=== PATIENT | male | born 1940 | race American Indian/Alaskan Native ===

== ENCOUNTER 2017-10-27 11:34 | Inpatient (IN) | payer MEDICARE ==
[2017-10-27 12:40] LABS: Basophils % (Auto) 0.7 % (0.0-1.8); Eosinophils % (Auto) 0.1 % (0.0-4.3); Hematocrit 42.2 % (35.5-45.6); Hemoglobin 14.2 gm/dl (11.8-15.2); Mean Corpuscular HGB Conc 34 % (32-34); Mean Corpuscular Hemoglobin 34 pg (28-32); Mean Corpuscular Volume 100 fl (84-94); Platelet Count 150 K/mm3 (140-440); Red Blood Count 4.23 M/mm3 (3.65-5.03); White Blood Count 8.9 K/mm3 (4.5-11.0)
[2017-10-27 12:48] LABS: Magnesium 2.1 mg/dL (1.7-2.3)
[2017-10-27 12:51] LABS: INR 1.3 (0.87-1.13)
[2017-10-27 12:55] LABS: Albumin 3.1 g/dL (3.9-5); Albumin/Globulin Ratio 0.8 %; Bilirubin,Direct 0.4 mg/dL (0-0.2); Bilirubin,Indirect 1.3 mg/dL; Bilirubin,Total 1.7 mg/dL (0.1-1.2); Calcium 9.3 mg/dL (8.4-10.2); Chloride 103.8 mmol/L (98-107); Potassium 5.1 mmol/L (3.6-5.0)
--- NOTE | 2017-10-27 13:23 | XRay Report ---
ROUTINE CHEST, TWO VIEWS: HISTORY: chest pain. Moderate to severe cardiomegaly, mild vascular congestion and small bilateral pleural effusions are identified. Focal atelectasis or scarring in the right perihilar region is suspected. No convincing pneumonia. No pneumothorax. IMPRESSION: CHF.
--- NOTE | 2017-10-27 21:35 | Emergency Department Report ---
ED Shortness of Breath HPI - General Chief Complaint: Dyspnea/Respdistress Stated Complaint: CP/SOB Time Seen by Provider: 10/27/17 21:21 Source: patient Mode of arrival: Wheelchair Limitations: Physical Limitation - History of Present Illness Initial Comments: Reta is a 77-year-old male presents to the emergency room with chest pain or shortness of breath 2 months. Patient also states also had bilateral lower extremity edema for one week. Patient denies fever or chills or any other pain. Patient denies past medical history. Patient states he is not on any medications. patient denies calf pain. MD Complaint: shortness of breath, chest pain -: Gradual (over 2 months) Pain Scale: 5 Quality: dull, aching Consistency: constant Improves With: rest Worsens With: lying flat, exertion Associated Symptoms: chest pain, orhopnia Treatments Prior to Arrival: none - Related Data Home Oxygen Therapy: No Allergies Allergy/AdvReac Type Severity Reaction Status Date / Time No Known Allergies Allergy Verified 10/27/17 22:34 ED Review of Systems ROS: Stated complaint: CP/SOB Other details as noted in HPI Comment: All other systems reviewed and negative Constitutional: weakness Respiratory: orthopnea, shortness of breath, SOB with exertion, SOB at rest Cardiovascular: chest pain, dyspnea on exertion Endocrine: no symptoms reported Gastrointestinal: as per HPI Skin: other (bilateral lower extremity edema) ED Past Medical Hx - Past Medical History Previous Medical History?: Yes Hx Arthritis: Yes - Surgical History Past Surgical History?: No - Family History Family history: hypertension - Social History Smoking Status: Former Smoker Substance Use Type: Alcohol ED Physical Exam - General Limitations: Physical Limitation General appearance: alert, in no apparent distress - Head Head exam: Present: atraumatic, normocephalic - Eye Eye exam: Present: normal appearance - ENT ENT exam: Present: mucous membranes moist - Neck Neck exam: Present: normal inspection - Respiratory Respiratory exam: Present: normal lung sounds bilaterally. Absent: respiratory distress - Cardiovascular Cardiovascular Exam: Present: regular rate, normal rhythm. Absent: systolic murmur, diastolic murmur, rubs, gallop - GI/Abdominal GI/Abdominal exam: Present: soft, normal bowel sounds - Rectal Rectal exam: Present: deferred - Extremities Exam Extremities exam: Present: other (bilateral lower extremity swelling noted above the knee. No calf tenderness noticed) - Back Exam Back exam: Present: normal inspection - Neurological Exam Neurological exam: Present: alert, oriented X3 - Psychiatric Psychiatric exam: Present: normal affect, normal mood - Skin Skin exam: Present: warm, dry, intact, normal color. Absent: rash ED Course Vital Signs 10/27/17 12:01 Temperature 98.3 F Pulse Rate 114 H Respiratory 24 Rate Blood Pressure 117/87 O2 Sat by Pulse 95 Oximetry ED Medical Decision Making - Lab Data Result diagrams: 10/27/17 12:21 10/27/17 12:21 - EKG Data -: EKG Interpreted by Me EKG shows normal: sinus rhythm Rate: tachycardia - EKG Data When compared to previous EKG there are: previous EKG unavailable Interpretation: no acute changes, other (left bundle branch block noted) - Radiology Data Radiology results: report reviewed Findings consistent with CHF - Medical Decision Making Hospitalist consulted for admission. Discussed case with hospitalist. Hospitalist to admit. New-onset CHF. Cardiology, Dr. Galvez consulted. Discussed case with Dr. Galvez. Dr. Galvez is admit patient for CHF exacerbation. lasix to be given. - Differential Diagnosis cp. sob. new chf Critical care attestation.: If time is entered above; I have spent that time in minutes in the direct care of this critically ill patient, excluding procedure time. ED Disposition Clinical Impression: Chest pain, Shortness of breath, CHF exacerbation, Bilateral lower extremity edema, Hyperkalemia Disposition: OP ADMIT IP TO THIS HOSP Is pt being admited?: Yes Does the pt Need Aspirin: Yes Condition: Critical Time of Disposition: 22:10
[2017-10-27] MEDS ORDERED: LASIX IV ONE (21:38)
[2017-10-27] MEDS ORDERED: ASPIRIN PO ONE (22:10)
[2017-10-27] MEDS ORDERED: MORPHINE IV PRN (22:29)
[2017-10-27] MEDS ORDERED: NITROSTAT SL PRN (22:29)
[2017-10-28 01:12] LABS: Bilirubin,Urine NEG (Negative); Blood,Urine NEG (Negative); Ketones,Urine NEG (Negative); Leukocyte Esterase,Urine NEG (Negative); Mucus,Urine FEW /HPF; Nitrite,Urine NEG (Negative); Protein,Urine <15 mg/dL mg/dL (Negative); Urobilinogen,Urine < 2.0 mg/dL (<2.0)
[2017-10-28 01:34] LABS: RBC,Urine < 1.0 /HPF (0.0-6.0)
--- NOTE | 2017-10-28 04:25 | History and Physical Report ---
CHIEF COMPLAINT: Shortness of breath. OTHER COMPLAINT: Increased swelling of the lower extremities. HISTORY OF PRESENTING ILLNESS: The patient is a 77-year-old male who says he has been having shortness of breath, going on and off for about two months and has noted swelling in both lower extremities, going on for about one week and becoming progressively big in size. The patient also complained of some chest discomfort and cough. There is no history of fever or chills and no history of nausea or vomiting. The patient also denied history of pain in the lower extremities. PAST MEDICAL HISTORY: Pertinent for high blood pressure. Also, the patient has past history of nephritis. PAST SURGICAL HISTORY: Unremarkable. FAMILY HISTORY: Pertinent for hypertension. SOCIAL HISTORY: The patient drinks alcohol. He used to smoke before, but does not smoke any more and does not use illicit drug. MEDICATIONS: The patient is not on any home medications. ALLERGIES: There are no known drug allergies. REVIEW OF SYSTEMS: CONSTITUTIONAL: There is no fever, no chills, no diaphoresis. HEENT: There is no headache or sore throat. CARDIOVASCULAR SYSTEM: Chest discomfort present. No orthopnea. RESPIRATORY SYSTEM: Shortness of breath present. Cough present. GASTROINTESTINAL SYSTEM: There is no nausea, no vomiting; no abdominal pain, diarrhea or constipation. NEUROLOGICAL SYSTEM: There is no numbness, no dizziness, no altered mental status. MUSCULOSKELETAL SYSTEM: There is swelling of both lower extremities and no joint pain. DERMATOLOGICAL SYSTEM: There is no skin rash or itching. GENITOURINARY SYSTEM: There are no dysuria, hematuria or flank pain. Rest of system review is normal. PHYSICAL EXAMINATION: GENERAL: At the time of exam, the patient was found to be alert, oriented x 3 and in mild distress due to shortness of breath and swelling in the lower extremities. VITAL SIGNS: Shows normal temperature with pulse of 100, respirations around 18-25, blood pressure 112/65 with O2 sat of about 86% before oxygen administration and up to 100% with oxygen by nasal cannula. HEENT: Showed pupils to be equal, round, and reactive to light and accommodation. Extraocular muscles are intact. NECK: Supple with JVD and no carotid bruit. CARDIOVASCULAR SYSTEM: Showed normal first and second heart sounds with no gallops or murmurs. RESPIRATORY SYSTEM: Showed reduced air entry on both sides of the lung with bibasilar rales. GASTROINTESTINAL SYSTEM: Show abdomen to be full, soft, nontender with no organomegaly or rigidity. NEUROLOGIC: Shows no focal deficit. MUSCULOSKELETAL SYSTEM: Shows swelling of the lower extremities from the foot up to the thigh level, which is pitting in nature. DERMATOLOGICAL SYSTEM: Show no skin rash. GENITOURINARY SYSTEM: Show no costovertebral angle tenderness. PERTINENT LABORATORY AND IMAGING STUDIES: The patient has CBC done that shows normal white count, normal hemoglobin and normal hematocrit with elevated MCV of 100. CBC differential showing elevated segmented neutrophil of 80.4. Coagulation studies show slight increase in PT of 16.9 and slight increase in INR of 1.30. Chemistry shows a slightly elevated potassium level of 5.1 with high BUN of 26 and slightly low GFR of 54. The patient's total bilirubin level was high with a value of 1.7 and direct bilirubin is slightly elevated with a value of 0.4. The patient's total creatinine kinase is high with a value of 188 with elevated CK-MB of 8.0 and an elevated percentage index of 4.0. The patient's troponin level is high with a value of 0.030 and the second value with a value of 0.031 and the last one of 0.035. The patient's brain natriuretic peptide level is high with a value of 31,233 and albumin level shows slight decreased value of 3.1. Urinalysis came back unremarkable. IMAGING STUDIES: The patient had a chest x-ray done that shows CHF. DIAGNOSES: 1. Congestive heart failure. 2. Non-ST segment elevation myocardial infarction. PLAN: The patient will be admitted to medical floor on telemetry and will have echocardiogram done in the morning. The patient will have Cardiology consult with Dr. Salas in view of the elevated troponin levels and will be on aspirin 81 mg by mouth daily and will be on carvedilol 6.25 mg by mouth twice daily. The patient will be on Lasix 40 mg IV daily and will be on heparin 5000 units subcutaneously every 12 hours for DVT prophylaxis. The patient will be on lisinopril 5 mg by mouth daily and morphine 2 mg IV every 5 minutes as needed for pain and nitro paste half inch to anterior chest wall q.i.d. The patient will be on oxygen by nasal cannula 2 liter per minute, and in view of the persistent elevated troponin level, the patient will be started on IV heparin rather than subcutaneous heparin and will be n.p.o. for possible intervention by the Cardiology. JOB# [id number] OCN/NTS
[2017-10-28] MEDS: NITRO-BID 2% TP SCH ×6 (05:18→17:24)
[2017-10-28] MEDS: HEPARIN/ 0.45% NACL-25,000 UNIT/500 ML 25,000 UNIT/500 ML BAG IV SCH ×2 (05:30→14:05)
[2017-10-28 06:06] LABS: Hematocrit 42.5 % (35.5-45.6); Hemoglobin 13.6 gm/dl (11.8-15.2)
[2017-10-28 06:16] LABS: INR 1.27 (0.87-1.13)
[2017-10-28 06:17] LABS: Partial Thromboplastin Time 33.8 Sec. (24.2-36.6)
[2017-10-28 06:27] LABS: Creatine Kinase MB 7.9 ng/mL (0.0-4.0)
[2017-10-28] MEDS: LASIX IV SCH (09:58)
[2017-10-28] MEDS: BABY ASPIRIN PO SCH (09:58)
[2017-10-28] MEDS: COREG PO SCH ×2 (09:59→21:50)
[2017-10-28] MEDS ORDERED: HEPARIN SUB-Q SCH (10:00)
[2017-10-28] MEDS ORDERED: ZESTRIL PO SCH (10:00)
--- NOTE | 2017-10-28 10:30 | Consultation ---
History of Present Illness Consult date: 10/28/17 Medications and Allergies Allergies Allergy/AdvReac Type Severity Reaction Status Date / Time No Known Allergies Allergy Verified 10/27/17 22:34 Home Medications Medication Instructions Recorded Confirmed Last Taken Type No Known Home Medications [No 10/28/17 10/28/17 Unknown History Reported Home Medications] Active Meds: Active Medications Aspirin (Baby Aspirin) 81 mg PO QDAY COUNT INCLUDES THE [facility] Last Admin: 10/28/17 09:58 Dose: 81 mg Carvedilol (Coreg) 6.25 mg PO BID COUNT INCLUDES THE [facility] Last Admin: 10/28/17 09:59 Dose: 6.25 mg Furosemide (Lasix) 40 mg IV QDAY COUNT INCLUDES THE [facility] Last Admin: 10/28/17 09:58 Dose: 40 mg Heparin Sodium/Sodium Chloride (Heparin/ 0.45% Nacl-25,000 Unit/500 Ml) 25,000 unit in 500 mls @ 20 mls/hr IV TITRATE COUNT INCLUDES THE [facility]; 1,000 UNITS/HR PRN Reason: Protocol Last Admin: 10/28/17 05:30 Dose: 1,000 units/hr, 20 mls/hr Influenza Virus Vaccine Quadrival (Fluarix Quad [id number](36 Mos+) 0.5 ml IM .ONCE ONE Stop: 10/28/17 12:01 Lisinopril (Zestril) 5 mg PO QDAY COUNT INCLUDES THE [facility] Last Admin: 10/28/17 09:59 Dose: 5 mg Morphine Sulfate (Morphine) 2 mg IV Q5MIN PRN PRN Reason: Chest Pain Last Admin: 10/27/17 23:04 Dose: 2 mg Nitroglycerin (Nitrostat) 0.4 mg SL .Q5MIN PRN PRN Reason: Chest Pain Nitroglycerin (Nitro-Bid 2%) 0.5 inch TP QIDNTG COUNT INCLUDES THE [facility] PRN Reason: Protocol Last Admin: 10/28/17 10:08 Dose: Not Given Physical Examination Vital Signs Temp Pulse Resp BP Pulse Ox 98.3 F 114 H 24 117/87 95 10/27/17 12:01 10/27/17 12:01 10/27/17 12:01 10/27/17 12:01 10/27/17 12:01 Results 10/28/17 04:54 10/27/17 12:21 Cardiac Enzymes 10/27/17 10/28/17 10/28/17 Range/Units 12:21 01:11 04:54 AST 27 (5-40) units/L CK-MB (CK-2) 8.0 H 7.9 H (0.0-4.0) ng/mL Coagulation 10/27/17 10/28/17 Range/Units 12:21 04:54 PT 16.9 H 16.6 H (12.2-14.9) Sec. INR 1.30 H 1.27 H (0.87-1.13) APTT 32.0 33.8 (24.2-36.6) Sec. Lipids 10/27/17 Range/Units 12:21 Triglycerides 91 (2-149) mg/dL Cholesterol 154 (50-199) mg/dL HDL Cholesterol 49 (40-59) mg/dL Cholesterol/HDL Ratio 3.14 % CBC 10/27/17 10/28/17 Range/Units 12:21 04:54 WBC 8.9 (4.5-11.0) K/mm3 RBC 4.23 (3.65-5.03) M/mm3 Hgb 14.2 13.6 (11.8-15.2) gm/dl Hct 42.2 42.5 (35.5-45.6) % Plt Count 150 139 L (140-440) K/mm3 Lymph # 0.9 L (1.2-5.4) K/mm3 [place] # 0.7 (0.0-0.8) K/mm3 Eos # 0.0 (0.0-0.4) K/mm3 Baso # 0.1 (0.0-0.1) K/mm3 Comprehensive Metabolic Panel 10/27/17 Range/Units 12:21 Sodium 142 (137-145) mmol/L Potassium 5.1 H (3.6-5.0) mmol/L Chloride 103.8 (98-107) mmol/L Carbon Dioxide 21 L (22-30) mmol/L BUN 26 H (9-20) mg/dL Creatinine 1.3 (0.8-1.5) mg/dL Glucose 114 H (75-100) mg/dL Calcium 9.3 (8.4-10.2) mg/dL Direct Bilirubin 0.4 H (0-0.2) mg/dL Indirect Bilirubin 1.3 mg/dL AST 27 (5-40) units/L ALT 24 (7-56) units/L Alkaline Phosphatase 64 (35-129) units/L Total Protein 7.0 (6.3-8.2) g/dL Albumin 3.1 L (3.9-5) g/dL Assessment and Plan Detailed Cardiology consult done.
[2017-10-28] MEDS ORDERED: Fluarix Quad 2017-2018(36 MOS+ IM ONE (12:00)
--- NOTE | 2017-10-28 20:23 | Progress Note ---
Assessment and Plan - Chest pain Monitor serial Eric. continue with oxygen, NTG, ASA, morphine. Cardiology consulted - Systolic heart failure ECHO done. EF 5-10% wiht severe systolic dysfunction. Strict Is and Os, Daily weight, Limited fluid intake to 1L/day ACEI, BB, Statin, - MICHAEL Elevated BUN 26. Likely secondry to diuresis. Trend BUN and CR - Hyperkalemia anticipate decreased with diuresis. Trend - Abnormal Eric on oxygen NTG, ASA, BB, Cardilogy following - DVT PPx with Heparinfg and GI with pepcid Subjective Date of service: 10/28/17 Principal diagnosis: chest pain Interval history: Chest pain getting better. Still has shortness of breath. Swelling of both feet improving Objective - Constitutional Vitals: Vital Signs - 12hr 10/28/17 10/28/17 12:12 13:19 Pulse Rate 81 O2 Sat by Pulse 97 Oximetry General appearance: Present: no acute distress - EENT Eyes: PERRL, EOM intact ENT: hearing intact, clear oral mucosa - Neck Neck: supple, normal ROM - Respiratory Respiratory effort: normal Respiratory: bilateral: diminished - Breasts Breasts: normal - Cardiovascular Rhythm: regular Heart Sounds: Present: S1 & S2. Absent: gallop, rub Extremities: pulses intact, normal color, Full ROM Extremity abnormal: edema (3+ shamika LE) - Gastrointestinal General gastrointestinal: Present: soft, non-tender, non-distended, normal bowel sounds - Genitourinary Male genitourinary: normal - Integumentary Integumentary: clear, warm, dry - Musculoskeletal Musculoskeletal: 1, strength equal bilaterally - Neurologic Neurologic: moves all extremities - Psychiatric Psychiatric: memory intact, appropriate mood/affect, intact judgment & insight - Labs CBC & Chem 7: 10/28/17 04:54 10/27/17 12:21 Labs: Abnormal lab results 10/28/17 10/28/17 10/28/17 Range/Units 01:11 04:54 04:54 Plt Count 139 L (140-440) K/mm3 PT (12.2-14.9) Sec. INR (0.87-1.13) Heparin Anti-Xa Level (0.3-0.7) U.I./ml Total Creatine Kinase 188 H 174 H (55-170) units/L CK-MB (CK-2) 8.0 H 7.9 H (0.0-4.0) ng/mL CK-MB (CK-2) Rel Index 4.2 H 4.5 H (0-4) Troponin T 0.035 H (0.00-0.029) ng/mL 10/28/17 10/28/17 Range/Units 04:54 12:09 Plt Count (140-440) K/mm3 PT 16.6 H (12.2-14.9) Sec. INR 1.27 H (0.87-1.13) Heparin Anti-Xa Level 0.26 L (0.3-0.7) U.I./ml Total Creatine Kinase (55-170) units/L CK-MB (CK-2) (0.0-4.0) ng/mL CK-MB (CK-2) Rel Index (0-4) Troponin T (0.00-0.029) ng/mL
--- NOTE | 2017-10-29 01:08 | Consultation ---
REFERRING PHYSICIAN: Aries Cook MD, hospitalist. HISTORY OF PRESENT ILLNESS: A 77-year-old pleasant -[place] gentleman with history of longstanding hypertension, degenerative joint disease, was admitted with progressive shortness of breath for the past 1 month duration and also [id number] substernal pressure-like chest pain on and off, at times addressed, and also on exertion, radiating to both sides of the neck. It is not associated with any nausea, vomiting, sweating, palpitations, presyncope or syncope. He also gives a history of swelling of both the legs and feet for the past 1 month. He has not seen a physician for a long time. No history of diabetes mellitus or hyperlipidemia. His serum creatinine is 1.3. His troponins are minimally increased with the CPK of 188 and 174, with MB of 8 and indices of 4.2 and 4.5. The mild increase in troponin is most likely secondary to congestive heart failure. He has improved clinically with treatment. Monitor also revealed an episode of nonsustained wide QRS tachycardia, most likely ventricular tachycardia (rate of 150 beats per minute). His EKG revealed complete left bundle branch block. He is being treated with intravenous diuretics with improvement. PAST MEDICAL HISTORY: History of multiple medical problems as described above. No history of CAD or myocardial infarction in the past, and history of chronic shortness of breath. SOCIAL HISTORY: He was a smoker, more than 10 years ago. He smoked for about 2 years (a pack a day and quit smoking then.) No history of alcoholic or drug abuse. FAMILY HISTORY: Positive for hypertension. Negative for premature coronary artery disease. ALLERGIES: None known. MEDICATIONS: He received intravenous morphine, nitro paste in the emergency room, and he also received aspirin. He is on aspirin 325 mg. He is on baby aspirin 81 mg p.o. daily, Coreg 6.25 mg p.o. b.i.d., furosemide 40 mg IV daily, lisinopril 5 mg p.o. daily, nitro paste half an inch to the chest wall. REVIEW OF SYSTEMS: CARDIOVASCULAR SYSTEM: As described in the history. BONE AND JOINTS: As described in the history. GI: Total bilirubin during this admission has increased to 1.7. Review of rest of the 10 systems is negative. PHYSICAL EXAMINATION: GENERAL: A 77-year-old pleasant -[place] gentleman. VITAL SIGNS: He is afebrile, pulse is 90 per minute regular, respirations 22 per minute, blood pressure 106/74 mmHg. NEUROLOGIC: He is alert and oriented x 3. HEENT: Negative. NECK: Supple. JVD 1-2+. No carotid bruit. HEART: PMI shifted down and out and is heaving in nature, no palpable thrills. Auscultation of the heart reveals a grade 2-3/6 ejection systolic murmur over the precardium, not contacted to the carotids more prominently over the apex. No rub. S4 is present, no S3. No rub. EXTREMITIES: Peripheral pulses felt. Bilateral 1-2+ pitting edema of both legs and feet. LUNGS: Examination also revealed mild wheezing. No bronchial breathing. ABDOMEN: Soft, benign. No organomegaly. SKIN: Negative. BONE AND JOINTS: Negative. LABORATORY DATA: Troponin 0.03, 0.031, 0.035, 0.028; HDL is 49, LDL is 87, triglycerides 91, potassium 5.1, BUN and creatinine 26 and 1.3, sodium 142. Chest x-ray reveals congestive heart failure. EKG is sinus tachycardia with rate of 119 per minute. Complete left bundle branch block with secondary ST-T changes. His proBNP is markedly increased to 31,233. IMPRESSION: 1. Recurrent chest pains with mild increase in troponins (there is mild increase in troponins could be secondary to congestive heart failure and also chronic kidney disease, acute myocardial infarction is unlikely). 2. Acute on chronic congestive heart failure (whether it is systolic or diastolic or a combination of both will be known after reviewing the echocardiogram). 3. History of hypertension. 4. History of degenerative joint disease. 5. Mild hyperkalemia. 6. Possible chronic kidney disease, creatinine 1.3. 7. Complete left bundle branch block and EKG. RECOMMENDATIONS: 1. We will hold lisinopril in view of mild hyperkalemia. 2. Salt and fluid restriction. 3. To continue other medications. 4. We will follow up echocardiogram (pending at this time). 5. We will schedule him for a [place] stress nuclear scan in the a.m., and need to be followed up. Prognosis is guarded. We will follow. JOB# [id number] [facility]
[2017-10-29 04:47] LABS: BUN/Creatinine Ratio 20; Blood Urea Nitrogen 30 mg/dL (9-20); Glucose 84 mg/dL (75-100); Potassium 4.1 mmol/L (3.6-5.0); Sodium 144 mmol/L (137-145)
[2017-10-29 05:19] LABS: Anion Gap 59 mmol/L; Carbon Dioxide 29 mmol/L (22-30)
[2017-10-29] MEDS: NITRO-BID 2% TP SCH ×3 (05:24→18:53)
[2017-10-29] MEDS: HEPARIN/ 0.45% NACL-25,000 UNIT/500 ML 25,000 UNIT/500 ML BAG IV SCH (06:03)
[2017-10-29] MEDS ORDERED: LEXISCAN IV ONE (10:00)
--- NOTE | 2017-10-29 10:06 | Progress Note ---
Assessment and Plan Assessment and plan: Patient is a 77 year old male with long standing hx of HTN, DJD, admitted with severe shortness of breath, ongoing for 2 months and worse in the last ffew days with associated lower ext swelling. Occasional Alcohol per hx and current tobacco use. Acute on chronic combined systolic diastolic heart failure * I/O, DAILY Weight, cardiology input noted, coreg, hold Lisinopril, Discussed with cardiology will need Life vest due to EF of 10% Atypical chest pain * Stress test negative. Likely secondary to CAD, will monitor. Now resolved, STATIN THERAPY MICHAEL * Elevated BUN 26. Likely secondry to Vasomotor nephropathy from diuresis. Trend BUN and CR. Hold ACEI Hyperkalemia * Resolved, anticipate decreased with diuresis. Trend Non Ischemic cardiomyopathy * cardiology following DJD * stable, ambulates with a cane complete LBBB * Cardiology following Abnormal Keiry * Elevate Troponin like secondary to cardiomyopathy DVT PPx with Heparin and GI with pepcid Plan discussed with patient in detail . History Interval history: Patient seen and examined in no acute distress. He still with some shortness of breath but reports improvement in his lower ext swelling. He denies any chest pain, nausea, vomiting or diarrhea. Hospitalist Physical - Constitutional Vitals: Temp Pulse Resp BP Pulse Ox 98.2 F 50 L 18 93/45 7 L 10/29/17 07:49 10/29/17 07:49 10/29/17 07:49 10/29/17 07:49 10/29/17 08:00 General appearance: Present: no acute distress - EENT Eyes: Present: PERRL, EOM intact ENT: hearing intact, clear oral mucosa - Neck Neck: Present: supple, normal ROM - Respiratory Respiratory effort: normal Respiratory: bilateral: rhonchi - Cardiovascular Rhythm: regular Heart Sounds: Present: S1 & S2 - Extremities Extremities: no ischemia, pulses intact, pulses symmetrical Extremity abnormal: edema (2+ pitting edema) Peripheral Pulses: within normal limits - Abdominal General gastrointestinal: soft, non-tender, non-distended - Integumentary Integumentary: Present: clear, warm - Psychiatric Psychiatric: appropriate mood/affect, intact judgment & insight - Neurologic Neurologic: CNII-XII intact, moves all extremities - Allied Health Allied health notes reviewed: nursing Results - Labs CBC & Chem 7: 10/28/17 04:54 10/29/17 02:11 Labs: Laboratory Last Values WBC 8.9 K/mm3 (4.5-11.0) 10/27/17 12:21 RBC 4.23 M/mm3 (3.65-5.03) 10/27/17 12:21 Hgb 13.6 gm/dl (11.8-15.2) 10/28/17 04:54 Hct 42.5 % (35.5-45.6) 10/28/17 04:54 MCV 100 fl (84-94) H 10/27/17 12:21 MCH 34 pg (28-32) H 10/27/17 12:21 MCHC 34 % (32-34) 10/27/17 12:21 RDW 18.0 % (13.2-15.2) H 10/27/17 12:21 Plt Count 139 K/mm3 (140-440) L 10/28/17 04:54 Lymph % (Auto) 10.4 % (13.4-35.0) L 10/27/17 12:21 [place] % (Auto) 8.4 % (0.0-7.3) H 10/27/17 12:21 Eos % (Auto) 0.1 % (0.0-4.3) 10/27/17 12:21 Baso % (Auto) 0.7 % (0.0-1.8) 10/27/17 12:21 Lymph # 0.9 K/mm3 (1.2-5.4) L 10/27/17 12:21 Pope # 0.7 K/mm3 (0.0-0.8) 10/27/17 12:21 Eos # 0.0 K/mm3 (0.0-0.4) 10/27/17 12:21 Baso # 0.1 K/mm3 (0.0-0.1) 10/27/17 12:21 Seg Neutrophils % 80.4 % (40.0-70.0) H 10/27/17 12:21 Seg Neutrophils # 7.1 K/mm3 (1.8-7.7) 10/27/17 12:21 PT 16.6 Sec. (12.2-14.9) H 10/28/17 04:54 INR 1.27 (0.87-1.13) H 10/28/17 04:54 APTT 33.8 Sec. (24.2-36.6) 10/28/17 04:54 Heparin Anti-Xa Level 0.55 U.I./ml (0.3-0.7) 10/29/17 01:50 Sodium 144 mmol/L (137-145) 10/29/17 02:11 Potassium 4.1 mmol/L (3.6-5.0) 10/29/17 02:11 Chloride 60.0 mmol/L (98-107) L 10/29/17 02:11 Carbon Dioxide 29 mmol/L (22-30) D 10/29/17 02:11 Anion Gap 59 mmol/L 10/29/17 02:11 BUN 30 mg/dL (9-20) H 10/29/17 02:11 Creatinine 1.5 mg/dL (0.8-1.5) 10/29/17 02:11 Estimated GFR > 60 ml/min 10/29/17 02:11 BUN/Creatinine Ratio 20 % 10/29/17 02:11 Glucose 84 mg/dL (75-100) 10/29/17 02:11 POC Glucose 95 (70-105) 10/29/17 07:52 Calcium 8.0 mg/dL (8.4-10.2) L 10/29/17 02:11 Magnesium 2.10 mg/dL (1.7-2.3) 10/27/17 12:21 Total Bilirubin 1.70 mg/dL (0.1-1.2) H 10/27/17 12:21 Direct Bilirubin 0.4 mg/dL (0-0.2) H 10/27/17 12:21 Indirect Bilirubin 1.3 mg/dL 10/27/17 12:21 AST 27 units/L (5-40) 10/27/17 12:21 ALT 24 units/L (7-56) 10/27/17 12:21 Alkaline Phosphatase 64 units/L (35-129) 10/27/17 12:21 Total Creatine Kinase 174 units/L (55-170) H 10/28/17 04:54 CK-MB (CK-2) 7.9 ng/mL (0.0-4.0) H 10/28/17 04:54 CK-MB (CK-2) Rel Index 4.5 (0-4) H 10/28/17 04:54 Troponin T 0.028 ng/mL (0.00-0.029) 10/28/17 04:54 NT-Pro-B Natriuret Pep 28633 pg/mL (0-900) H 10/27/17 12:21 Total Protein 7.0 g/dL (6.3-8.2) 10/27/17 12:21 Albumin 3.1 g/dL (3.9-5) L 10/27/17 12:21 Albumin/Globulin Ratio 0.8 % 10/27/17 12:21 Triglycerides 91 mg/dL (2-149) 10/27/17 12:21 Cholesterol 154 mg/dL (50-199) 10/27/17 12:21 LDL Cholesterol Direct 87 mg/dL (50-130) 10/27/17 12:21 HDL Cholesterol 49 mg/dL (40-59) 10/27/17 12:21 Cholesterol/HDL Ratio 3.14 % 10/27/17 12:21 Urine Color Straw (Yellow) 10/28/17 00:49 Urine Turbidity Clear (Clear) 10/28/17 00:49 Urine pH 5.0 (5.0-7.0) 10/28/17 00:49 Ur Specific [place] 1.005 (1.003-1.030) 10/28/17 00:49 Urine Protein <15 mg/dl mg/dL (Negative) 10/28/17 00:49 Urine Glucose (UA) Neg mg/dL (Negative) 10/28/17 00:49 Urine Ketones Neg mg/dL (Negative) 10/28/17 00:49 Urine Blood Neg (Negative) 10/28/17 00:49 Urine Nitrite Neg (Negative) 10/28/17 00:49 Urine Bilirubin Neg (Negative) 10/28/17 00:49 Urine Urobilinogen < 2.0 mg/dL (<2.0) 10/28/17 00:49 Ur Leukocyte Esterase Neg (Negative) 10/28/17 00:49 Urine WBC (Auto) 1.0 /HPF (0.0-6.0) 10/28/17 00:49 Urine RBC (Auto) < 1.0 /HPF (0.0-6.0) 10/28/17 00:49 U Epithel Cells (Auto) < 1.0 /HPF (0-13.0) 10/28/17 00:49 Urine Mucus Few /HPF 10/28/17 00:49 Blood Type A POSITIVE 10/27/17 12:21 Antibody Screen Negative 10/27/17 12:21 - Imaging and Cardiology Chest x-ray: image reviewed (Congestive heart failure)
[2017-10-29] MEDS: BABY ASPIRIN PO SCH (11:53)
[2017-10-29] MEDS ORDERED: PNEUMOVAX 23 IM ONE (12:00)
--- NOTE | 2017-10-29 14:00 | Progress Note ---
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 CKD CMP - presumably nonischemic as stress test today was negative for ischemia H/o HTN - currently with borderline hypotension DJD Mild hyperkalemia - improved Possible CKD - renal indices trending upwards Complete LBBB NSVT Plan: Echo reviewed - EF 5-10%, abnormal LV diastolic function, LA moderately dilated , RV mild to moderately dilated, RV systolic function moderately reduced, RA mild to moderately dilated, severe MR, mod TR, mild pulm HTN, RVSP 40mmHg. S/p lexiscan MPI stress test this AM which was negative for ischemia, EF 10%. D/ c heparin gtt and initiate SQ heparin for DVT prophylaxis. Cont Coreg. Recommend holding lisinopril in setting of increasing serum Cr and borderline hypotension. Repeat BMP in AM. Telemetry reviewed with multiple episodes of NSVT. Will order LifeVest given EF of 5-10%. Possible discharge in AM and pending LifeVest placement. The patient has been seen in conjunction with Dr. Khalil who agrees with the assessment and plan of care. Subjective Date of service: 10/29/17 Principal diagnosis: chest pain Interval history: for stress test today Objective Last Vital Signs Temp 98.2 F 10/29/17 07:49 Pulse 88 10/29/17 09:45 Resp 18 10/29/17 07:49 BP 89/66 10/29/17 09:45 Pulse Ox 7 L 10/29/17 08:00 - Physical Examination General: No Apparent Distress HEENT: Positive: PERRL, Normocephaly, Sinus Tenderness Neck: Positive: neck supple, trachea midline Cardiac: Positive: Reg Rate and Rhythm, S1/S2, Systolic Murmur Lungs: Positive: Wheezes Neuro: Positive: Grossly Intact Abdomen: Positive: Soft. Negative: Tender Skin: Positive: Clear. Negative: Rash, Wound Extremities: Present: +1 Edema (BLE) - Labs and Meds Comprehensive Metabolic Panel 10/29/17 Range/Units 02:11 Sodium 144 (137-145) mmol/L Potassium 4.1 (3.6-5.0) mmol/L Chloride 60.0 L (98-107) mmol/L Carbon Dioxide 29 D (22-30) mmol/L BUN 30 H (9-20) mg/dL Creatinine 1.5 (0.8-1.5) mg/dL Glucose 84 (75-100) mg/dL Calcium 8.0 L (8.4-10.2) mg/dL - Telemetry EKG Rhythm: Sinus Rhythm
[2017-10-29] MEDS: COREG PO SCH ×2 (17:18→21:49)
[2017-10-29] MEDS: ZESTRIL PO SCH (17:19)
[2017-10-29] MEDS: HEPARIN SUB-Q SCH (21:50)
[2017-10-29] MEDS: LASIX IV SCH (21:59)
[2017-10-30] MEDS: NITRO-BID 2% TP SCH ×4 (05:38→18:00)
[2017-10-30] MEDS: HEPARIN SUB-Q SCH ×3 (05:52→22:31)
[2017-10-30 06:18] LABS: Hematocrit 42.5 % (35.5-45.6); Hemoglobin 13.7 gm/dl (11.8-15.2); Mean Corpuscular HGB Conc 32 % (32-34); Mean Corpuscular Hemoglobin 32 pg (28-32); Mean Corpuscular Volume 100 fl (84-94); Platelet Count 127 K/mm3 (140-440); Red Blood Count 4.25 M/mm3 (3.65-5.03); Red Cell Distribution Width 17.5 % (13.2-15.2); White Blood Count 5.2 K/mm3 (4.5-11.0)
[2017-10-30 06:37] LABS: Anion Gap 13 mmol/L; BUN/Creatinine Ratio 22; Blood Urea Nitrogen 26 mg/dL (9-20); Calcium 8.6 mg/dL (8.4-10.2); Carbon Dioxide 29 mmol/L (22-30); Chloride 108.3 mmol/L (98-107); Glucose 86 mg/dL (75-100); Potassium 4.7 mmol/L (3.6-5.0); Sodium 146 mmol/L (137-145)
--- NOTE | 2017-10-30 07:14 | Treadmill Report ---
SINGLE ISOTOPE DUAL STUDY MYOCARDIAL PERFUSION SCAN REPORT REFERRING PHYSICIAN: Isaiah Harper MD. VIEWED BY: Gena Vaz MD. DESCRIPTION OF PROCEDURE: The patient received 10 mCi of technetium 99m Myoview intravenously under resting conditions. Resting myocardial perfusion scan was done. Subsequently, the patient underwent Lexiscan stress test as per the protocol. During Lexiscan stress, the patient received 28 mCi of technetium 99m Myoview intravenously. After 30-60 minutes, post stress images were done. Computerized reconstruction images were performed for analysis. The post-stress images revealed markedly dilated left ventricle. Large severe inferior wall perfusion defect was seen. A small mild septal perfusion defect was seen. A small mild anterior wall perfusion defect was also seen. Gated study revealed markedly dilated left ventricle with severe global left ventricular systolic dysfunction with LVEF around 10%. The resting images revealed minimal reversibility in the inferior wall. There was no reperfusion in the septal region or in the anterior wall region. CONCLUSIONS: 1. Markedly dilated left ventricle. 2. Severe global left ventricular systolic dysfunction with LVEF around 10%. 3. Large severe minimally reversible inferior wall perfusion defect. 4. Small fixed, mild septal perfusion defect. 5. Small mild fixed anterior wall perfusion defect. 6. The above findings are suggestive of dilated severe nonischemic cardiomyopathy. [facility]# [id number] [facility]
[2017-10-30] MEDS: LASIX IV SCH ×2 (09:57→18:17)
[2017-10-30] MEDS: BABY ASPIRIN PO SCH (09:57)
[2017-10-30] MEDS: ZESTRIL PO SCH (09:59)
[2017-10-30] MEDS: COREG PO SCH ×2 (10:00→23:51)
--- NOTE | 2017-10-30 11:32 | Progress Note ---
Assessment and Plan Assessment and plan: Patient is a 77 year old male with long standing hx of HTN, DJD, admitted with severe shortness of breath, ongoing for 2 months and worse in the last ffew days with associated lower ext swelling. Occasional Alcohol per hx and current tobacco use. Acute on chronic combined systolic diastolic heart failure * I/O, DAILY Weight, cardiology input noted, coreg, hold Lisinopril, Discussed with cardiology will need Life vest due to EF of 10% * Stress test with markedly dilated LV with severely decreased EF of 10%. Multiple fixed perfusion defects with minimal reversibility in the inferior wall - suggestive of dilated nonischemic cardiomyopathy. Atypical chest pain * significantly dilated LV with noted severely decreased EF. will need a life vest. Likely secondary to CAD, will monitor. Now resolved, STATIN THERAPY MICHAEL * Elevated BUN 26. Likely secondry to Vasomotor nephropathy from diuresis. Trend BUN and CR. Hold ACEI Hyperkalemia * Resolved, anticipate decreased with diuresis. Trend Non Ischemic cardiomyopathy * cardiology following DJD * stable, ambulates with a cane complete LBBB * Cardiology following Abnormal Keiry * Elevate Troponin like secondary to cardiomyopathy DVT PPx with Heparin and GI with pepcid Plan discussed with patient in detail . : History Interval history: Patient seen and examined in no acute distress. He still with some shortness of breath but reports improvement in his lower ext swelling. He denies any chest pain, nausea, vomiting or diarrhea. Hospitalist Physical - Physical exam Narrative exam: General appearance: Present: no acute distress - EENT Eyes: Present: PERRL, EOM intact ENT: hearing intact, clear oral mucosa - Neck Neck: Present: supple, normal ROM - Respiratory Respiratory effort: normal Respiratory: bilateral: rhonchi - Cardiovascular Rhythm: regular Heart Sounds: Present: S1 & S2 - Extremities Extremities: no ischemia, pulses intact, pulses symmetrical Extremity abnormal: edema (2+ pitting edema) Peripheral Pulses: within normal limits - Abdominal General gastrointestinal: soft, non-tender, non-distended - Integumentary Integumentary: Present: clear, warm - Psychiatric Psychiatric: appropriate mood/affect, intact judgment & insight - Neurologic Neurologic: CNII-XII intact, moves all extremities - Allied Health Allied health notes reviewed: nursing - Constitutional Vitals: Temp Pulse Resp BP Pulse Ox 97.8 F 80 18 102/60 100 10/30/17 03:58 10/30/17 10:00 10/30/17 03:58 10/30/17 10:00 10/30/17 03:58 General appearance: Present: mild distress Results - Labs CBC & Chem 7: 10/30/17 04:00 10/31/17 06:08 Labs: Laboratory Last Values WBC 5.2 K/mm3 (4.5-11.0) 10/30/17 04:00 RBC 4.25 M/mm3 (3.65-5.03) 10/30/17 04:00 Hgb 13.7 gm/dl (11.8-15.2) 10/30/17 04:00 Hct 42.5 % (35.5-45.6) 10/30/17 04:00 MCV 100 fl (84-94) H 10/30/17 04:00 MCH 32 pg (28-32) 10/30/17 04:00 MCHC 32 % (32-34) 10/30/17 04:00 RDW 17.5 % (13.2-15.2) H 10/30/17 04:00 Plt Count 127 K/mm3 (140-440) L 10/30/17 04:00 Lymph % (Auto) 10.4 % (13.4-35.0) L 10/27/17 12:21 [place] % (Auto) 8.4 % (0.0-7.3) H 10/27/17 12:21 Eos % (Auto) 0.1 % (0.0-4.3) 10/27/17 12:21 Baso % (Auto) 0.7 % (0.0-1.8) 10/27/17 12:21 Lymph # 0.9 K/mm3 (1.2-5.4) L 10/27/17 12:21 [place] # 0.7 K/mm3 (0.0-0.8) 10/27/17 12:21 Eos # 0.0 K/mm3 (0.0-0.4) 10/27/17 12:21 Baso # 0.1 K/mm3 (0.0-0.1) 10/27/17 12:21 Seg Neutrophils % 80.4 % (40.0-70.0) H 10/27/17 12:21 Seg Neutrophils # 7.1 K/mm3 (1.8-7.7) 10/27/17 12:21 PT 16.6 Sec. (12.2-14.9) H 10/28/17 04:54 INR 1.27 (0.87-1.13) H 10/28/17 04:54 APTT 33.8 Sec. (24.2-36.6) 10/28/17 04:54 Heparin Anti-Xa Level < 0.10 U.I./ml (0.3-0.7) L 10/30/17 06:00 Sodium 146 mmol/L (137-145) H 10/30/17 04:00 Potassium 4.7 mmol/L (3.6-5.0) 10/30/17 04:00 Chloride 108.3 mmol/L (98-107) H 10/30/17 04:00 Carbon Dioxide 29 mmol/L (22-30) 10/30/17 04:00 Anion Gap 13 mmol/L 10/30/17 04:00 BUN 26 mg/dL (9-20) H 10/30/17 04:00 Creatinine 1.2 mg/dL (0.8-1.5) 10/30/17 04:00 Estimated GFR > 60 ml/min 10/30/17 04:00 BUN/Creatinine Ratio 22 % 10/30/17 04:00 Glucose 86 mg/dL (75-100) 10/30/17 04:00 POC Glucose 96 (70-105) 10/29/17 21:31 Calcium 8.6 mg/dL (8.4-10.2) 10/30/17 04:00 Magnesium 2.10 mg/dL (1.7-2.3) 10/27/17 12:21 Total Bilirubin 1.70 mg/dL (0.1-1.2) H 10/27/17 12:21 Direct Bilirubin 0.4 mg/dL (0-0.2) H 10/27/17 12:21 Indirect Bilirubin 1.3 mg/dL 10/27/17 12:21 AST 27 units/L (5-40) 10/27/17 12:21 ALT 24 units/L (7-56) 10/27/17 12:21 Alkaline Phosphatase 64 units/L (35-129) 10/27/17 12:21 Total Creatine Kinase 174 units/L (55-170) H 10/28/17 04:54 CK-MB (CK-2) 7.9 ng/mL (0.0-4.0) H 10/28/17 04:54 CK-MB (CK-2) Rel Index 4.5 (0-4) H 10/28/17 04:54 Troponin T 0.028 ng/mL (0.00-0.029) 10/28/17 04:54 NT-Pro-B Natriuret Pep 86577 pg/mL (0-900) H 10/27/17 12:21 Total Protein 7.0 g/dL (6.3-8.2) 10/27/17 12:21 Albumin 3.1 g/dL (3.9-5) L 10/27/17 12:21 Albumin/Globulin Ratio 0.8 % 10/27/17 12:21 Triglycerides 91 mg/dL (2-149) 10/27/17 12:21 Cholesterol 154 mg/dL (50-199) 10/27/17 12:21 LDL Cholesterol Direct 87 mg/dL (50-130) 10/27/17 12:21 HDL Cholesterol 49 mg/dL (40-59) 10/27/17 12:21 Cholesterol/HDL Ratio 3.14 % 10/27/17 12:21 Urine Color Straw (Yellow) 10/28/17 00:49 Urine Turbidity Clear (Clear) 10/28/17 00:49 Urine pH 5.0 (5.0-7.0) 10/28/17 00:49 Ur Specific [place] 1.005 (1.003-1.030) 10/28/17 00:49 Urine Protein <15 mg/dl mg/dL (Negative) 10/28/17 00:49 Urine Glucose (UA) Neg mg/dL (Negative) 10/28/17 00:49 Urine Ketones Neg mg/dL (Negative) 10/28/17 00:49 Urine Blood Neg (Negative) 10/28/17 00:49 Urine Nitrite Neg (Negative) 10/28/17 00:49 Urine Bilirubin Neg (Negative) 10/28/17 00:49 Urine Urobilinogen < 2.0 mg/dL (<2.0) 10/28/17 00:49 Ur Leukocyte Esterase Neg (Negative) 10/28/17 00:49 Urine WBC (Auto) 1.0 /HPF (0.0-6.0) 10/28/17 00:49 Urine RBC (Auto) < 1.0 /HPF (0.0-6.0) 10/28/17 00:49 U Epithel Cells (Auto) < 1.0 /HPF (0-13.0) 10/28/17 00:49 Urine Mucus Few /HPF 10/28/17 00:49 Blood Type A POSITIVE 10/27/17 12:21 Antibody Screen Negative 10/27/17 12:21
--- NOTE | 2017-10-30 11:50 | Progress Note ---
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 CKD CMP - presumably nonischemic as stress test today was negative for ischemia H/o HTN - currently with borderline hypotension DJD Mild hyperkalemia - improved Possible CKD Complete LBBB NSVT Plan: Increase lasix to 40mg IV BID given persistent BLE edema. Repeat BMP in AM. Await LifeVest placement. The patient has been seen in conjunction with Dr. Khalil who agrees with the assessment and plan of care. Subjective Date of service: 10/30/17 Principal diagnosis: chest pain Interval history: pt resting comfortably, denies cp or SOB. BLE edema persists. Awaiting LifeVest placement. Objective Last Vital Signs Temp 97.8 F 10/30/17 03:58 Pulse 80 10/30/17 10:00 Resp 18 10/30/17 03:58 BP 102/60 10/30/17 10:00 Pulse Ox 100 10/30/17 03:58 - Physical Examination General: No Apparent Distress HEENT: Positive: PERRL, Normocephaly, Sinus Tenderness Neck: Positive: neck supple, trachea midline Cardiac: Positive: Reg Rate and Rhythm, S1/S2 Lungs: Positive: clear to auscultation Neuro: Positive: Grossly Intact Abdomen: Positive: Soft. Negative: Tender Skin: Positive: Clear. Negative: Rash, Wound Extremities: Present: +2 Edema (BLE) - Labs and Meds CBC 10/30/17 Range/Units 04:00 WBC 5.2 (4.5-11.0) K/mm3 RBC 4.25 (3.65-5.03) M/mm3 Hgb 13.7 (11.8-15.2) gm/dl Hct 42.5 (35.5-45.6) % Plt Count 127 L (140-440) K/mm3 Comprehensive Metabolic Panel 10/30/17 Range/Units 04:00 Sodium 146 H (137-145) mmol/L Potassium 4.7 (3.6-5.0) mmol/L Chloride 108.3 H (98-107) mmol/L Carbon Dioxide 29 (22-30) mmol/L BUN 26 H (9-20) mg/dL Creatinine 1.2 (0.8-1.5) mg/dL Glucose 86 (75-100) mg/dL Calcium 8.6 (8.4-10.2) mg/dL - Telemetry EKG Rhythm: Sinus Rhythm
[2017-10-31] MEDS: HEPARIN SUB-Q SCH ×3 (06:04→22:01)
[2017-10-31] MEDS: LASIX IV SCH ×2 (06:04→19:12)
[2017-10-31] MEDS: NITRO-BID 2% TP SCH ×3 (06:05→19:11)
[2017-10-31 06:51] LABS: Anion Gap 12 mmol/L; BUN/Creatinine Ratio 23; Blood Urea Nitrogen 25 mg/dL (9-20); Calcium 8.3 mg/dL (8.4-10.2); Carbon Dioxide 33 mmol/L (22-30); Chloride 102.4 mmol/L (98-107); Glucose 90 mg/dL (75-100); Potassium 4.1 mmol/L (3.6-5.0); Sodium 143 mmol/L (137-145)
[2017-10-31] MEDS: BABY ASPIRIN PO SCH (10:11)
[2017-10-31] MEDS: COREG PO SCH (10:11)
[2017-10-31] MEDS: ZESTRIL PO SCH (10:12)
[2017-10-31] MEDS: DOBUTREX DRIP 500MG/D5W 250ML 500 MG/250 ML BAG IV SCH (14:05)
--- NOTE | 2017-10-31 14:07 | Progress Note ---
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 CKD CMP - presumably nonischemic as stress test was negative for ischemia H/o HTN - currently with borderline hypotension DJD Mild hyperkalemia - improved Possible CKD Complete LBBB NSVT Plan: Will initiate trial of dobutamine gtt @ 5mcg/kg/min. Cont IV lasix. Await LifeVest placement. The patient has been seen in conjunction with Dr. Khalil who agrees with the assessment and plan of care. Subjective Date of service: 10/31/17 Principal diagnosis: chest pain Interval history: pt resting comfortably, denies cp or SOB. BLE edema persists. Awaiting LifeVest placement. BPs low. Objective Last Vital Signs Temp 98.3 F 10/31/17 03:57 Pulse 91 H 10/31/17 06:05 Resp 20 10/31/17 03:57 BP 85/60 10/31/17 06:05 Pulse Ox 97 10/31/17 08:06 - Physical Examination General: No Apparent Distress HEENT: Positive: PERRL, Normocephaly, Sinus Tenderness Neck: Positive: neck supple, trachea midline Cardiac: Positive: Reg Rate and Rhythm, S1/S2 Lungs: Positive: Decreased Breath Sounds Neuro: Positive: Grossly Intact Abdomen: Positive: Soft. Negative: Tender Skin: Positive: Clear. Negative: Rash, Wound Extremities: Present: +2 Edema (BLE) - Labs and Meds Comprehensive Metabolic Panel 10/31/17 Range/Units 06:08 Sodium 143 (137-145) mmol/L Potassium 4.1 (3.6-5.0) mmol/L Chloride 102.4 (98-107) mmol/L Carbon Dioxide 33 H (22-30) mmol/L BUN 25 H (9-20) mg/dL Creatinine 1.1 (0.8-1.5) mg/dL Glucose 90 (75-100) mg/dL Calcium 8.3 L (8.4-10.2) mg/dL
--- NOTE | 2017-10-31 17:30 | Progress Note ---
Assessment and Plan Assessment and plan: Patient is a 77 year old male with long standing hx of HTN, DJD, admitted with severe shortness of breath, ongoing for 2 months and worse in the last ffew days with associated lower ext swelling. Occasional Alcohol per hx and current tobacco use. Acute on chronic combined systolic diastolic heart failure * I/O, DAILY Weight, cardiology input noted, coreg, hold Lisinopril, Discussed with cardiology will need Life vest due to EF of 10% * Stress test with markedly dilated LV with severely decreased EF of 10%. Multiple fixed perfusion defects with minimal reversibility in the inferior wall - suggestive of dilated nonischemic cardiomyopathy. * Discussed with cardiology, will start trial of dobutamin gtt Atypical chest pain-Resolved * significantly dilated LV with noted severely decreased EF. will need a life vest. Likely secondary to CAD, will monitor. Now resolved, STATIN THERAPY MICHAEL * Elevated BUN 26. Likely secondry to Vasomotor nephropathy from diuresis. Trend BUN and CR. Hold ACEI Hyperkalemia * Resolved, anticipate decreased with diuresis. Trend Non Ischemic cardiomyopathy * cardiology following DJD * stable, ambulates with a cane complete LBBB * Cardiology following Abnormal Keiry * Elevate Troponin like secondary to cardiomyopathy DVT PPx with Heparin and GI with pepcid Plan discussed with patient in detail . Plan discusssed with cardiology and also with the patient. History Interval history: Patient seen and examined in no acute distress. He still with some shortness of breath with orthopena but reports improvement in his lower ext swelling. He denies any chest pain, nausea, vomiting or diarrhea. Hospitalist Physical - Physical exam Narrative exam: General appearance: Present: no acute distress - EENT Eyes: Present: PERRL, EOM intact ENT: hearing intact, clear oral mucosa - Neck Neck: Present: supple, normal ROM - Respiratory Respiratory effort: normal Respiratory: bilateral: rhonchi - Cardiovascular Rhythm: regular Heart Sounds: Present: S1 & S2 - Extremities Extremities: no ischemia, pulses intact, pulses symmetrical Extremity abnormal: edema (2+ pitting edema) Peripheral Pulses: within normal limits - Abdominal General gastrointestinal: soft, non-tender, non-distended - Integumentary Integumentary: Present: clear, warm - Psychiatric Psychiatric: appropriate mood/affect, intact judgment & insight - Neurologic Neurologic: CNII-XII intact, moves all extremities - Allied Health Allied health notes reviewed: nursing - Constitutional Vitals: Temp Pulse Resp BP Pulse Ox 98.3 F 106 H 20 96/68 97 10/31/17 03:57 10/31/17 15:10 10/31/17 03:57 10/31/17 15:10 10/31/17 08:06 General appearance: Present: mild distress Results - Labs CBC & Chem 7: 10/30/17 04:00 10/31/17 06:08 Labs: Laboratory Last Values WBC 5.2 K/mm3 (4.5-11.0) 10/30/17 04:00 RBC 4.25 M/mm3 (3.65-5.03) 10/30/17 04:00 Hgb 13.7 gm/dl (11.8-15.2) 10/30/17 04:00 Hct 42.5 % (35.5-45.6) 10/30/17 04:00 MCV 100 fl (84-94) H 10/30/17 04:00 MCH 32 pg (28-32) 10/30/17 04:00 MCHC 32 % (32-34) 10/30/17 04:00 RDW 17.5 % (13.2-15.2) H 10/30/17 04:00 Plt Count 127 K/mm3 (140-440) L 10/30/17 04:00 Lymph % (Auto) 10.4 % (13.4-35.0) L 10/27/17 12:21 [place] % (Auto) 8.4 % (0.0-7.3) H 10/27/17 12:21 Eos % (Auto) 0.1 % (0.0-4.3) 10/27/17 12:21 Baso % (Auto) 0.7 % (0.0-1.8) 10/27/17 12:21 Lymph # 0.9 K/mm3 (1.2-5.4) L 10/27/17 12:21 [place] # 0.7 K/mm3 (0.0-0.8) 10/27/17 12:21 Eos # 0.0 K/mm3 (0.0-0.4) 10/27/17 12:21 Baso # 0.1 K/mm3 (0.0-0.1) 10/27/17 12:21 Seg Neutrophils % 80.4 % (40.0-70.0) H 10/27/17 12:21 Seg Neutrophils # 7.1 K/mm3 (1.8-7.7) 10/27/17 12:21 PT 16.6 Sec. (12.2-14.9) H 10/28/17 04:54 INR 1.27 (0.87-1.13) H 10/28/17 04:54 APTT 33.8 Sec. (24.2-36.6) 10/28/17 04:54 Heparin Anti-Xa Level < 0.10 U.I./ml (0.3-0.7) L 10/30/17 06:00 Sodium 143 mmol/L (137-145) 10/31/17 06:08 Potassium 4.1 mmol/L (3.6-5.0) 10/31/17 06:08 Chloride 102.4 mmol/L (98-107) 10/31/17 06:08 Carbon Dioxide 33 mmol/L (22-30) H 10/31/17 06:08 Anion Gap 12 mmol/L 10/31/17 06:08 BUN 25 mg/dL (9-20) H 10/31/17 06:08 Creatinine 1.1 mg/dL (0.8-1.5) 10/31/17 06:08 Estimated GFR > 60 ml/min 10/31/17 06:08 BUN/Creatinine Ratio 23 % 10/31/17 06:08 Glucose 90 mg/dL (75-100) 10/31/17 06:08 POC Glucose 96 (70-105) 10/29/17 21:31 Calcium 8.3 mg/dL (8.4-10.2) L 10/31/17 06:08 Magnesium 2.10 mg/dL (1.7-2.3) 10/27/17 12:21 Total Bilirubin 1.70 mg/dL (0.1-1.2) H 10/27/17 12:21 Direct Bilirubin 0.4 mg/dL (0-0.2) H 10/27/17 12:21 Indirect Bilirubin 1.3 mg/dL 10/27/17 12:21 AST 27 units/L (5-40) 10/27/17 12:21 ALT 24 units/L (7-56) 10/27/17 12:21 Alkaline Phosphatase 64 units/L (35-129) 10/27/17 12:21 Total Creatine Kinase 174 units/L (55-170) H 10/28/17 04:54 CK-MB (CK-2) 7.9 ng/mL (0.0-4.0) H 10/28/17 04:54 CK-MB (CK-2) Rel Index 4.5 (0-4) H 10/28/17 04:54 Troponin T 0.028 ng/mL (0.00-0.029) 10/28/17 04:54 NT-Pro-B Natriuret Pep 40549 pg/mL (0-900) H 10/27/17 12:21 Total Protein 7.0 g/dL (6.3-8.2) 10/27/17 12:21 Albumin 3.1 g/dL (3.9-5) L 10/27/17 12:21 Albumin/Globulin Ratio 0.8 % 10/27/17 12:21 Triglycerides 91 mg/dL (2-149) 10/27/17 12:21 Cholesterol 154 mg/dL (50-199) 10/27/17 12:21 LDL Cholesterol Direct 87 mg/dL (50-130) 10/27/17 12:21 HDL Cholesterol 49 mg/dL (40-59) 10/27/17 12:21 Cholesterol/HDL Ratio 3.14 % 10/27/17 12:21 Urine Color Straw (Yellow) 10/28/17 00:49 Urine Turbidity Clear (Clear) 10/28/17 00:49 Urine pH 5.0 (5.0-7.0) 10/28/17 00:49 Ur Specific [place] 1.005 (1.003-1.030) 10/28/17 00:49 Urine Protein <15 mg/dl mg/dL (Negative) 10/28/17 00:49 Urine Glucose (UA) Neg mg/dL (Negative) 10/28/17 00:49 Urine Ketones Neg mg/dL (Negative) 10/28/17 00:49 Urine Blood Neg (Negative) 10/28/17 00:49 Urine Nitrite Neg (Negative) 10/28/17 00:49 Urine Bilirubin Neg (Negative) 10/28/17 00:49 Urine Urobilinogen < 2.0 mg/dL (<2.0) 10/28/17 00:49 Ur Leukocyte Esterase Neg (Negative) 10/28/17 00:49 Urine WBC (Auto) 1.0 /HPF (0.0-6.0) 10/28/17 00:49 Urine RBC (Auto) < 1.0 /HPF (0.0-6.0) 10/28/17 00:49 U Epithel Cells (Auto) < 1.0 /HPF (0-13.0) 10/28/17 00:49 Urine Mucus Few /HPF 10/28/17 00:49 Blood Type A POSITIVE 10/27/17 12:21 Antibody Screen Negative 10/27/17 12:21
[2017-11-01] MEDS: HEPARIN SUB-Q SCH ×3 (05:04→21:35)
[2017-11-01] MEDS: LASIX IV SCH ×2 (05:08→19:54)
[2017-11-01] MEDS: NITRO-BID 2% TP SCH ×4 (05:08→19:54)
[2017-11-01] MEDS: BABY ASPIRIN PO SCH (10:16)
[2017-11-01] MEDS: DOBUTREX DRIP 500MG/D5W 250ML 500 MG/250 ML BAG IV SCH ×2 (10:27→23:44)
[2017-11-01] MEDS ORDERED: ULTRAM PO PRN (10:40)
--- NOTE | 2017-11-01 10:50 | Progress Note ---
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 CKD CMP - presumably nonischemic as stress test was negative for ischemia H/o HTN - currently with borderline hypotension DJD Mild hyperkalemia - improved Thrombocytopenia Possible CKD Complete LBBB NSVT Plan: Cont dobutamine gtt @ 5mcg/kg/min. Cont IV lasix. LifeVest in place. Possible discharge on Saturday/Saturday after 72 hours of dobutamine. The patient has been seen in conjunction with Dr. Khalil who agrees with the assessment and plan of care. Subjective Date of service: 11/01/17 Principal diagnosis: chest pain Interval history: pt resting comfortably, denies cp or SOB. BLE edema persists. LifeVest in place. Dobutamine gtt infusing - was held overnight d/t low BPs per primary RN. Objective Last Vital Signs Temp 98.8 F 11/01/17 08:20 Pulse 89 11/01/17 08:20 Resp 18 11/01/17 08:20 BP 88/59 11/01/17 08:20 Pulse Ox 99 11/01/17 08:20 - Physical Examination General: No Apparent Distress HEENT: Positive: PERRL, Normocephaly, Sinus Tenderness Neck: Positive: neck supple, trachea midline Cardiac: Positive: Reg Rate and Rhythm, S1/S2 Lungs: Positive: clear to auscultation Neuro: Positive: Grossly Intact Abdomen: Positive: Soft. Negative: Tender Skin: Positive: Clear. Negative: Rash, Wound Extremities: Present: +2 Edema (BLE)
--- NOTE | 2017-11-01 18:34 | Progress Note ---
Assessment and Plan Assessment and plan: Patient is a 77 year old male with long standing hx of HTN, DJD, admitted with severe shortness of breath, ongoing for 2 months and worse in the last ffew days with associated lower ext swelling. Occasional Alcohol per hx and current tobacco use. Acute on chronic combined systolic diastolic heart failure * I/O, DAILY Weight, cardiology input noted, coreg, hold Lisinopril, Discussed with cardiology will need Life vest due to EF of 10% * Stress test with markedly dilated LV with severely decreased EF of 10%. Multiple fixed perfusion defects with minimal reversibility in the inferior wall - suggestive of dilated nonischemic cardiomyopathy. * Discussed with cardiology, continue trial of dobutamin gtt * Doppler lower ext to r/o DVT Bilateral leg chronic wound with poor healing * Wound care consult Atypical chest pain-Resolved * significantly dilated LV with noted severely decreased EF. will need a life vest. Likely secondary to CAD, will monitor. Now resolved, Satin THERAPY MICHAEL * Elevated BUN 26. Likely secondry to Vasomotor nephropathy from diuresis. Trend BUN and CR. Hold ACEI Hyperkalemia * Resolved, anticipate decreased with diuresis. Trend Non Ischemic cardiomyopathy * cardiology following DJD * stable, ambulates with a cane complete LBBB * Cardiology following Abnormal Keiry * Elevate Troponin like secondary to cardiomyopathy DVT PPx with Heparin and GI with pepcid Plan discussed with patient in detail . Plan discusssed with cardiology and also with the patient. History Interval history: Patient seen and examined in no acute distress. shortness of breath still persist, Some bilateral leg pain around leg wound. Denies chest pain, nausea or vomiting. still with some orthopnia Hospitalist Physical - Physical exam Narrative exam: General appearance: Present: no acute distress - EENT Eyes: Present: PERRL, EOM intact ENT: hearing intact, clear oral mucosa - Neck Neck: Present: supple, normal ROM - Respiratory Respiratory effort: normal Respiratory: bilateral: rhonchi - Cardiovascular Rhythm: regular Heart Sounds: Present: S1 & S2 - Extremities Extremities: no ischemia, pulses intact, pulses symmetrical Extremity abnormal: edema (2+ pitting edema) Peripheral Pulses: within normal limits - Abdominal General gastrointestinal: soft, non-tender, non-distended - Integumentary Integumentary: Present: clear, warm - Psychiatric Psychiatric: appropriate mood/affect, intact judgment & insight - Neurologic Neurologic: CNII-XII intact, moves all extremities - Allied Health Allied health notes reviewed: nursing - Constitutional Vitals: Temp Pulse Resp BP Pulse Ox 97.9 F 107 H 18 93/63 98 11/01/17 15:42 11/01/17 15:42 11/01/17 15:42 11/01/17 15:42 11/01/17 15:42 General appearance: Present: mild distress Results - Labs CBC & Chem 7: 10/30/17 04:00 10/31/17 06:08 Labs: Laboratory Last Values WBC 5.2 K/mm3 (4.5-11.0) 10/30/17 04:00 RBC 4.25 M/mm3 (3.65-5.03) 10/30/17 04:00 Hgb 13.7 gm/dl (11.8-15.2) 10/30/17 04:00 Hct 42.5 % (35.5-45.6) 10/30/17 04:00 MCV 100 fl (84-94) H 10/30/17 04:00 MCH 32 pg (28-32) 10/30/17 04:00 MCHC 32 % (32-34) 10/30/17 04:00 RDW 17.5 % (13.2-15.2) H 10/30/17 04:00 Plt Count 127 K/mm3 (140-440) L 10/30/17 04:00 Lymph % (Auto) 10.4 % (13.4-35.0) L 10/27/17 12:21 [place] % (Auto) 8.4 % (0.0-7.3) H 10/27/17 12:21 Eos % (Auto) 0.1 % (0.0-4.3) 10/27/17 12:21 Baso % (Auto) 0.7 % (0.0-1.8) 10/27/17 12:21 Lymph # 0.9 K/mm3 (1.2-5.4) L 10/27/17 12:21 [place] # 0.7 K/mm3 (0.0-0.8) 10/27/17 12:21 Eos # 0.0 K/mm3 (0.0-0.4) 10/27/17 12:21 Baso # 0.1 K/mm3 (0.0-0.1) 10/27/17 12:21 Seg Neutrophils % 80.4 % (40.0-70.0) H 10/27/17 12:21 Seg Neutrophils # 7.1 K/mm3 (1.8-7.7) 10/27/17 12:21 PT 16.6 Sec. (12.2-14.9) H 10/28/17 04:54 INR 1.27 (0.87-1.13) H 10/28/17 04:54 APTT 33.8 Sec. (24.2-36.6) 10/28/17 04:54 Heparin Anti-Xa Level < 0.10 U.I./ml (0.3-0.7) L 10/30/17 06:00 Sodium 143 mmol/L (137-145) 10/31/17 06:08 Potassium 4.1 mmol/L (3.6-5.0) 10/31/17 06:08 Chloride 102.4 mmol/L (98-107) 10/31/17 06:08 Carbon Dioxide 33 mmol/L (22-30) H 10/31/17 06:08 Anion Gap 12 mmol/L 10/31/17 06:08 BUN 25 mg/dL (9-20) H 10/31/17 06:08 Creatinine 1.1 mg/dL (0.8-1.5) 10/31/17 06:08 Estimated GFR > 60 ml/min 10/31/17 06:08 BUN/Creatinine Ratio 23 % 10/31/17 06:08 Glucose 90 mg/dL (75-100) 10/31/17 06:08 POC Glucose 96 (70-105) 10/29/17 21:31 Calcium 8.3 mg/dL (8.4-10.2) L 10/31/17 06:08 Magnesium 2.10 mg/dL (1.7-2.3) 10/27/17 12:21 Total Bilirubin 1.70 mg/dL (0.1-1.2) H 10/27/17 12:21 Direct Bilirubin 0.4 mg/dL (0-0.2) H 10/27/17 12:21 Indirect Bilirubin 1.3 mg/dL 10/27/17 12:21 AST 27 units/L (5-40) 10/27/17 12:21 ALT 24 units/L (7-56) 10/27/17 12:21 Alkaline Phosphatase 64 units/L (35-129) 10/27/17 12:21 Total Creatine Kinase 174 units/L (55-170) H 10/28/17 04:54 CK-MB (CK-2) 7.9 ng/mL (0.0-4.0) H 10/28/17 04:54 CK-MB (CK-2) Rel Index 4.5 (0-4) H 10/28/17 04:54 Troponin T 0.028 ng/mL (0.00-0.029) 10/28/17 04:54 NT-Pro-B Natriuret Pep 60915 pg/mL (0-900) H 10/27/17 12:21 Total Protein 7.0 g/dL (6.3-8.2) 10/27/17 12:21 Albumin 3.1 g/dL (3.9-5) L 10/27/17 12:21 Albumin/Globulin Ratio 0.8 % 10/27/17 12:21 Triglycerides 91 mg/dL (2-149) 10/27/17 12:21 Cholesterol 154 mg/dL (50-199) 10/27/17 12:21 LDL Cholesterol Direct 87 mg/dL (50-130) 10/27/17 12:21 HDL Cholesterol 49 mg/dL (40-59) 10/27/17 12:21 Cholesterol/HDL Ratio 3.14 % 10/27/17 12:21 Urine Color Straw (Yellow) 10/28/17 00:49 Urine Turbidity Clear (Clear) 10/28/17 00:49 Urine pH 5.0 (5.0-7.0) 10/28/17 00:49 Ur Specific [place] 1.005 (1.003-1.030) 10/28/17 00:49 Urine Protein <15 mg/dl mg/dL (Negative) 10/28/17 00:49 Urine Glucose (UA) Neg mg/dL (Negative) 10/28/17 00:49 Urine Ketones Neg mg/dL (Negative) 10/28/17 00:49 Urine Blood Neg (Negative) 10/28/17 00:49 Urine Nitrite Neg (Negative) 10/28/17 00:49 Urine Bilirubin Neg (Negative) 10/28/17 00:49 Urine Urobilinogen < 2.0 mg/dL (<2.0) 10/28/17 00:49 Ur Leukocyte Esterase Neg (Negative) 10/28/17 00:49 Urine WBC (Auto) 1.0 /HPF (0.0-6.0) 10/28/17 00:49 Urine RBC (Auto) < 1.0 /HPF (0.0-6.0) 10/28/17 00:49 U Epithel Cells (Auto) < 1.0 /HPF (0-13.0) 10/28/17 00:49 Urine Mucus Few /HPF 10/28/17 00:49 Blood Type A POSITIVE 10/27/17 12:21 Antibody Screen Negative 10/27/17 12:21 - Imaging and Cardiology Venous US: pending
[2017-11-02] MEDS: NITRO-BID 2% TP SCH ×5 (05:42→18:34)
[2017-11-02] MEDS: LASIX IV SCH ×2 (06:04→18:34)
[2017-11-02] MEDS: HEPARIN SUB-Q SCH ×3 (06:04→22:24)
[2017-11-02] MEDS: BABY ASPIRIN PO SCH (09:48)
--- NOTE | 2017-11-02 15:28 | Progress Note ---
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 CKD CMP - presumably nonischemic as stress test was negative for ischemia H/o HTN - currently with borderline hypotension DJD Mild hyperkalemia - improved Thrombocytopenia Possible CKD Complete LBBB NSVT Plan: Cont dobutamine gtt @ 5mcg/kg/min. Cont IV lasix. LifeVest in place. patient continues to be SOB,B.P being on low side,continur dibutamine, no evidence of throbus on venous flow studies. Subjective Date of service: 11/02/17 Principal diagnosis: chest pain Interval history: Still SOB,has leg swelling,had venous flow studies done ,B.P on low side. Objective Vital Signs Temp Pulse Resp BP BP Pulse Ox 11/02/17 12:52 98.9 F 100 H 20 89/61 11/02/17 09:50 90/68 11/02/17 09:04 98.9 F 20 L 20 90/68 98 11/02/17 05:09 98.6 F 103 H 20 99/65 100 11/01/17 23:55 98.9 F 102 H 20 112/65 96 11/01/17 22:00 96 H 11/01/17 20:17 98.9 F 100 H 20 90/56 97 11/01/17 15:42 97.9 F 107 H 18 93/63 98 - Physical Examination General: No Apparent Distress HEENT: Positive: PERRL, Normocephaly, Sinus Tenderness Neck: Positive: neck supple, trachea midline, JVD/HJR (markedly elevated.) Cardiac: Positive: Regular Rhythm Lungs: Positive: Decreased Breath Sounds Neuro: Positive: Grossly Intact Abdomen: Positive: Soft. Negative: Tender Skin: Positive: Clear. Negative: Rash, Wound Extremities: Present: +2 Edema (BLE)
--- NOTE | 2017-11-02 15:34 | Progress Note ---
Assessment and Plan Assessment and plan: Patient is a 77 year old male with long standing hx of HTN, DJD, admitted with severe shortness of breath, ongoing for 2 months and worse in the last ffew days with associated lower ext swelling. Occasional Alcohol per hx and current tobacco use. Acute on chronic combined systolic diastolic heart failure * I/O, DAILY Weight, cardiology input noted, coreg, hold Lisinopril, Discussed with cardiology will need Life vest due to EF of 10% * Stress test with markedly dilated LV with severely decreased EF of 10%. Multiple fixed perfusion defects with minimal reversibility in the inferior wall - suggestive of dilated nonischemic cardiomyopathy. * Discussed with cardiology, continue trial of dobutamin gtt * DOPPLER NEGATIVE FOR DVT Bilateral leg chronic wound with poor healing * Wound care consult, DRESSING NOTED Atypical chest pain-Resolved * significantly dilated LV with noted severely decreased EF. will need a life vest. Likely secondary to CAD, will monitor. Now resolved, Satin THERAPY MICHAEL * Likely secondary to Vasomotor nephropathy from diuresis. Trend BUN and CR. Hold ACEI Hyperkalemia * Resolved, anticipate decreased with diuresis. Trend Hypotension * Likely due to doubtamin, continue to monitor. patient is asymptomatic Non Ischemic cardiomyopathy * cardiology following DJD * stable, ambulates with a cane complete LBBB * Cardiology following Abnormal Keiry * Elevate Troponin like secondary to cardiomyopathy DVT PPx with Heparin and GI with pepcid Plan discussed with patient in detail . Plan discussed with cardiology and also with the patient. Anticipate discharge in a Day or two History Interval history: Patient seen and examined in no acute distress. shortness of breath still persist, Some bilateral leg pain around leg wound. Denies chest pain, nausea or vomiting. still with some orthopnia Hospitalist Physical - Physical exam Narrative exam: General appearance: Present: no acute distress - EENT Eyes: Present: PERRL, EOM intact ENT: hearing intact, clear oral mucosa - Neck Neck: Present: supple, normal ROM - Respiratory Respiratory effort: normal Respiratory: bilateral: rhonchi - Cardiovascular Rhythm: regular Heart Sounds: Present: S1 & S2 - Extremities Extremities: no ischemia, pulses intact, pulses symmetrical Extremity abnormal: edema (2+ pitting edema) Peripheral Pulses: within normal limits - Abdominal General gastrointestinal: soft, non-tender, non-distended - Integumentary Integumentary: Present: DRESSING IN PLACE RIGHT LOWER EXT WOUND STILL MILD DRAINAGE - Psychiatric Psychiatric: appropriate mood/affect, intact judgment & insight - Neurologic Neurologic: CNII-XII intact, moves all extremities - Allied Health Allied health notes reviewed: nursing - Constitutional Vitals: Temp Pulse Resp BP Pulse Ox 98.9 F 100 H 20 89/61 98 11/02/17 12:52 11/02/17 12:52 11/02/17 12:52 11/02/17 12:52 11/02/17 09:04 General appearance: Present: mild distress Results - Labs CBC & Chem 7: 10/30/17 04:00 10/31/17 06:08 Labs: Laboratory Last Values WBC 5.2 K/mm3 (4.5-11.0) 10/30/17 04:00 RBC 4.25 M/mm3 (3.65-5.03) 10/30/17 04:00 Hgb 13.7 gm/dl (11.8-15.2) 10/30/17 04:00 Hct 42.5 % (35.5-45.6) 10/30/17 04:00 MCV 100 fl (84-94) H 10/30/17 04:00 MCH 32 pg (28-32) 10/30/17 04:00 MCHC 32 % (32-34) 10/30/17 04:00 RDW 17.5 % (13.2-15.2) H 10/30/17 04:00 Plt Count 127 K/mm3 (140-440) L 10/30/17 04:00 Lymph % (Auto) 10.4 % (13.4-35.0) L 10/27/17 12:21 [place] % (Auto) 8.4 % (0.0-7.3) H 10/27/17 12:21 Eos % (Auto) 0.1 % (0.0-4.3) 10/27/17 12:21 Baso % (Auto) 0.7 % (0.0-1.8) 10/27/17 12:21 Lymph # 0.9 K/mm3 (1.2-5.4) L 10/27/17 12:21 [place] # 0.7 K/mm3 (0.0-0.8) 10/27/17 12:21 Eos # 0.0 K/mm3 (0.0-0.4) 10/27/17 12:21 Baso # 0.1 K/mm3 (0.0-0.1) 10/27/17 12:21 Seg Neutrophils % 80.4 % (40.0-70.0) H 10/27/17 12:21 Seg Neutrophils # 7.1 K/mm3 (1.8-7.7) 10/27/17 12:21 PT 16.6 Sec. (12.2-14.9) H 10/28/17 04:54 INR 1.27 (0.87-1.13) H 10/28/17 04:54 APTT 33.8 Sec. (24.2-36.6) 10/28/17 04:54 Heparin Anti-Xa Level < 0.10 U.I./ml (0.3-0.7) L 10/30/17 06:00 Sodium 143 mmol/L (137-145) 10/31/17 06:08 Potassium 4.1 mmol/L (3.6-5.0) 10/31/17 06:08 Chloride 102.4 mmol/L (98-107) 10/31/17 06:08 Carbon Dioxide 33 mmol/L (22-30) H 10/31/17 06:08 Anion Gap 12 mmol/L 10/31/17 06:08 BUN 25 mg/dL (9-20) H 10/31/17 06:08 Creatinine 1.1 mg/dL (0.8-1.5) 10/31/17 06:08 Estimated GFR > 60 ml/min 10/31/17 06:08 BUN/Creatinine Ratio 23 % 10/31/17 06:08 Glucose 90 mg/dL (75-100) 10/31/17 06:08 POC Glucose 96 (70-105) 10/29/17 21:31 Calcium 8.3 mg/dL (8.4-10.2) L 10/31/17 06:08 Magnesium 2.10 mg/dL (1.7-2.3) 10/27/17 12:21 Total Bilirubin 1.70 mg/dL (0.1-1.2) H 10/27/17 12:21 Direct Bilirubin 0.4 mg/dL (0-0.2) H 10/27/17 12:21 Indirect Bilirubin 1.3 mg/dL 10/27/17 12:21 AST 27 units/L (5-40) 10/27/17 12:21 ALT 24 units/L (7-56) 10/27/17 12:21 Alkaline Phosphatase 64 units/L (35-129) 10/27/17 12:21 Total Creatine Kinase 174 units/L (55-170) H 10/28/17 04:54 CK-MB (CK-2) 7.9 ng/mL (0.0-4.0) H 10/28/17 04:54 CK-MB (CK-2) Rel Index 4.5 (0-4) H 10/28/17 04:54 Troponin T 0.028 ng/mL (0.00-0.029) 10/28/17 04:54 NT-Pro-B Natriuret Pep 44409 pg/mL (0-900) H 10/27/17 12:21 Total Protein 7.0 g/dL (6.3-8.2) 10/27/17 12:21 Albumin 3.1 g/dL (3.9-5) L 10/27/17 12:21 Albumin/Globulin Ratio 0.8 % 10/27/17 12:21 Triglycerides 91 mg/dL (2-149) 10/27/17 12:21 Cholesterol 154 mg/dL (50-199) 10/27/17 12:21 LDL Cholesterol Direct 87 mg/dL (50-130) 10/27/17 12:21 HDL Cholesterol 49 mg/dL (40-59) 10/27/17 12:21 Cholesterol/HDL Ratio 3.14 % 10/27/17 12:21 Urine Color Straw (Yellow) 10/28/17 00:49 Urine Turbidity Clear (Clear) 10/28/17 00:49 Urine pH 5.0 (5.0-7.0) 10/28/17 00:49 Ur Specific [place] 1.005 (1.003-1.030) 10/28/17 00:49 Urine Protein <15 mg/dl mg/dL (Negative) 10/28/17 00:49 Urine Glucose (UA) Neg mg/dL (Negative) 10/28/17 00:49 Urine Ketones Neg mg/dL (Negative) 10/28/17 00:49 Urine Blood Neg (Negative) 10/28/17 00:49 Urine Nitrite Neg (Negative) 10/28/17 00:49 Urine Bilirubin Neg (Negative) 10/28/17 00:49 Urine Urobilinogen < 2.0 mg/dL (<2.0) 10/28/17 00:49 Ur Leukocyte Esterase Neg (Negative) 10/28/17 00:49 Urine WBC (Auto) 1.0 /HPF (0.0-6.0) 10/28/17 00:49 Urine RBC (Auto) < 1.0 /HPF (0.0-6.0) 10/28/17 00:49 U Epithel Cells (Auto) < 1.0 /HPF (0-13.0) 10/28/17 00:49 Urine Mucus Few /HPF 10/28/17 00:49 Blood Type A POSITIVE 10/27/17 12:21 Antibody Screen Negative 10/27/17 12:21
[2017-11-02] MEDS: DOBUTREX DRIP 500MG/D5W 250ML 500 MG/250 ML BAG IV SCH (21:00)
[2017-11-03] MEDS: LASIX IV SCH ×2 (06:07→18:23)
[2017-11-03] MEDS: HEPARIN SUB-Q SCH ×3 (06:07→22:39)
[2017-11-03] MEDS: NITRO-BID 2% TP SCH ×3 (06:24→14:28)
[2017-11-03 07:05] LABS: Anion Gap 12 mmol/L; BUN/Creatinine Ratio 15; Blood Urea Nitrogen 15 mg/dL (9-20); Calcium 8.5 mg/dL (8.4-10.2); Carbon Dioxide 33 mmol/L (22-30); Chloride 98.6 mmol/L (98-107); Glucose 83 mg/dL (75-100); Potassium 4.7 mmol/L (3.6-5.0); Sodium 139 mmol/L (137-145)
[2017-11-03] MEDS: BABY ASPIRIN PO SCH (10:07)
--- NOTE | 2017-11-03 12:30 | Progress Note ---
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 CKD CMP - presumably nonischemic as stress test was negative for ischemia H/o HTN - currently with borderline hypotension DJD Mild hyperkalemia - improved Thrombocytopenia Possible CKD Complete LBBB NSVT Plan: Cont dobutamine gtt @ 5mcg/kg/min. Cont IV lasix. LifeVest in place. patient continues to be SOB,B.P being on low side,continur dibutamine, no evidence of thrombus on venous flow studies. No significant change in patient's status. Subjective Date of service: 11/03/17 Principal diagnosis: chest pain Interval history: Still SOB,has leg swelling,says still SOB,legs hurt.. Objective Vital Signs Temp Pulse Pulse Resp BP BP Pulse Ox 11/03/17 10:00 98 11/03/17 06:28 97 H 11/03/17 04:30 98.8 F 100 H 18 90/59 100 11/03/17 00:06 99.1 F 103 H 20 102/72 100 11/02/17 22:00 96 H 11/02/17 21:18 98 11/02/17 20:08 99.4 F 103 H 20 94/69 99 11/02/17 17:14 98.5 F 70 20 96/58 99 11/02/17 16:17 98.5 F 99 H 20 96/58 93 11/02/17 12:52 98.9 F 100 H 20 89/61 - Physical Examination General: No Apparent Distress HEENT: Positive: PERRL, Normocephaly, Sinus Tenderness Neck: Positive: neck supple, trachea midline, JVD/HJR (markedly elevated.) Cardiac: Positive: Reg Rate and Rhythm Lungs: Positive: Decreased Breath Sounds Neuro: Positive: Grossly Intact Abdomen: Positive: Soft. Negative: Tender Skin: Positive: Clear. Negative: Rash, Wound Extremities: Present: +2 Edema (BLE) - Labs and Meds Comprehensive Metabolic Panel 11/03/17 Range/Units 06:16 Sodium 139 (137-145) mmol/L Potassium 4.7 (3.6-5.0) mmol/L Chloride 98.6 (98-107) mmol/L Carbon Dioxide 33 H (22-30) mmol/L BUN 15 (9-20) mg/dL Creatinine 1.0 (0.8-1.5) mg/dL Glucose 83 (75-100) mg/dL Calcium 8.5 (8.4-10.2) mg/dL
[2017-11-03] MEDS: DOBUTREX DRIP 500MG/D5W 250ML 500 MG/250 ML BAG IV SCH (16:25)
--- NOTE | 2017-11-03 18:20 | Progress Note ---
Assessment and Plan Assessment and plan: Patient is a 77 year old male with long standing hx of HTN, DJD, admitted with severe shortness of breath, ongoing for 2 months and worse in the last few days with associated lower ext swelling. Occasional Alcohol per hx and current tobacco use. Acute on chronic combined systolic diastolic heart failure -Patient is on IV Lasix, strict input and output, patient is on dobutamine gtt. - Stress test with markedly dilated LV with severely decreased EF of 10%. Multiple fixed perfusion defects with minimal reversibility in the inferior wall suggestive of dilated nonischemic cardiomyopathy. - Cardiology consult appreciated Bilateral leg chronic wound with poor healing - Wound care consult, DRESSING NOTED Atypical chest pain-Resolved - significantly dilated LV with noted severely decreased EF. will need a life vest. Likely secondary to CAD, will monitor. Now resolved, Satin THERAPY MICHAEL - Likely secondary to Vasomotor nephropathy from diuresis. Trend BUN and CR. Hold ACEI Hyperkalemia - Resolved, anticipate decreased with diuresis. Trend Hypotension - Likely due to doubtamin, continue to monitor. patient is asymptomatic Non Ischemic cardiomyopathy - cardiology following DJD stable complete LBBB Cardiology following Abnormal Keiry Elevate Troponin like secondary to cardiomyopathy, tending down, non specific DVT PPx with Heparin and GI with pepcid Plan discussed with patient in detail . Plan discussed with cardiology and also with the patient. possible D/C in 1-2 days. History Interval history: Patient was seen and evaluated this morning, patient said he has dyspnea on walking short distance. Hospitalist Physical - Physical exam Narrative exam: Not in cardiopulmonary distress. The patient appeared well nourished and normally developed. Vital signs as documented. Head exam is unremarkable. No scleral icterus . Neck is without jugular venous distension, thyromegaly, or carotid bruits. Lungs are clear to auscultation. Cardiac exam reveals regular rate and Rhythm. First and second heart sounds normal. No murmurs, rubs or gallops. Abdominal exam reveals normal bowel sounds, no masses, no organomegaly and no aortic enlargement. Extremities are nonedematous and both femoral and pedal pulses are normal. TRUCK BRACER: Alert and oriented 3. No focal weakness. - Constitutional Vitals: Temp Pulse Resp BP Pulse Ox 98.8 F 97 H 18 90/59 98 11/03/17 04:30 11/03/17 06:28 11/03/17 04:30 11/03/17 04:30 11/03/17 10:00 General appearance: Present: mild distress Results - Labs CBC & Chem 7: 10/30/17 04:00 11/03/17 06:16 Labs: Laboratory Last Values WBC 5.2 K/mm3 (4.5-11.0) 10/30/17 04:00 RBC 4.25 M/mm3 (3.65-5.03) 10/30/17 04:00 Hgb 13.7 gm/dl (11.8-15.2) 10/30/17 04:00 Hct 42.5 % (35.5-45.6) 10/30/17 04:00 MCV 100 fl (84-94) H 10/30/17 04:00 MCH 32 pg (28-32) 10/30/17 04:00 MCHC 32 % (32-34) 10/30/17 04:00 RDW 17.5 % (13.2-15.2) H 10/30/17 04:00 Plt Count 127 K/mm3 (140-440) L 10/30/17 04:00 Lymph % (Auto) 10.4 % (13.4-35.0) L 10/27/17 12:21 Graves % (Auto) 8.4 % (0.0-7.3) H 10/27/17 12:21 Eos % (Auto) 0.1 % (0.0-4.3) 10/27/17 12:21 Baso % (Auto) 0.7 % (0.0-1.8) 10/27/17 12:21 Lymph # 0.9 K/mm3 (1.2-5.4) L 10/27/17 12:21 Graves # 0.7 K/mm3 (0.0-0.8) 10/27/17 12:21 Eos # 0.0 K/mm3 (0.0-0.4) 10/27/17 12:21 Baso # 0.1 K/mm3 (0.0-0.1) 10/27/17 12:21 Seg Neutrophils % 80.4 % (40.0-70.0) H 10/27/17 12:21 Seg Neutrophils # 7.1 K/mm3 (1.8-7.7) 10/27/17 12:21 PT 16.6 Sec. (12.2-14.9) H 10/28/17 04:54 INR 1.27 (0.87-1.13) H 10/28/17 04:54 APTT 33.8 Sec. (24.2-36.6) 10/28/17 04:54 Heparin Anti-Xa Level < 0.10 U.I./ml (0.3-0.7) L 10/30/17 06:00 Sodium 139 mmol/L (137-145) 11/03/17 06:16 Potassium 4.7 mmol/L (3.6-5.0) 11/03/17 06:16 Chloride 98.6 mmol/L (98-107) 11/03/17 06:16 Carbon Dioxide 33 mmol/L (22-30) H 11/03/17 06:16 Anion Gap 12 mmol/L 11/03/17 06:16 BUN 15 mg/dL (9-20) 11/03/17 06:16 Creatinine 1.0 mg/dL (0.8-1.5) 11/03/17 06:16 Estimated GFR > 60 ml/min 11/03/17 06:16 BUN/Creatinine Ratio 15 % 11/03/17 06:16 Glucose 83 mg/dL (75-100) 11/03/17 06:16 POC Glucose 96 (70-105) 10/29/17 21:31 Calcium 8.5 mg/dL (8.4-10.2) 11/03/17 06:16 Magnesium 2.10 mg/dL (1.7-2.3) 10/27/17 12:21 Total Bilirubin 1.70 mg/dL (0.1-1.2) H 10/27/17 12:21 Direct Bilirubin 0.4 mg/dL (0-0.2) H 10/27/17 12:21 Indirect Bilirubin 1.3 mg/dL 10/27/17 12:21 AST 27 units/L (5-40) 10/27/17 12:21 ALT 24 units/L (7-56) 10/27/17 12:21 Alkaline Phosphatase 64 units/L (35-129) 10/27/17 12:21 Total Creatine Kinase 174 units/L (55-170) H 10/28/17 04:54 CK-MB (CK-2) 7.9 ng/mL (0.0-4.0) H 10/28/17 04:54 CK-MB (CK-2) Rel Index 4.5 (0-4) H 10/28/17 04:54 Troponin T 0.028 ng/mL (0.00-0.029) 10/28/17 04:54 NT-Pro-B Natriuret Pep 60630 pg/mL (0-900) H 10/27/17 12:21 Total Protein 7.0 g/dL (6.3-8.2) 10/27/17 12:21 Albumin 3.1 g/dL (3.9-5) L 10/27/17 12:21 Albumin/Globulin Ratio 0.8 % 10/27/17 12:21 Triglycerides 91 mg/dL (2-149) 10/27/17 12:21 Cholesterol 154 mg/dL (50-199) 10/27/17 12:21 LDL Cholesterol Direct 87 mg/dL (50-130) 10/27/17 12:21 HDL Cholesterol 49 mg/dL (40-59) 10/27/17 12:21 Cholesterol/HDL Ratio 3.14 % 10/27/17 12:21 Urine Color Straw (Yellow) 10/28/17 00:49 Urine Turbidity Clear (Clear) 10/28/17 00:49 Urine pH 5.0 (5.0-7.0) 10/28/17 00:49 Ur Specific [place] 1.005 (1.003-1.030) 10/28/17 00:49 Urine Protein <15 mg/dl mg/dL (Negative) 10/28/17 00:49 Urine Glucose (UA) Neg mg/dL (Negative) 10/28/17 00:49 Urine Ketones Neg mg/dL (Negative) 10/28/17 00:49 Urine Blood Neg (Negative) 10/28/17 00:49 Urine Nitrite Neg (Negative) 10/28/17 00:49 Urine Bilirubin Neg (Negative) 10/28/17 00:49 Urine Urobilinogen < 2.0 mg/dL (<2.0) 10/28/17 00:49 Ur Leukocyte Esterase Neg (Negative) 10/28/17 00:49 Urine WBC (Auto) 1.0 /HPF (0.0-6.0) 10/28/17 00:49 Urine RBC (Auto) < 1.0 /HPF (0.0-6.0) 10/28/17 00:49 U Epithel Cells (Auto) < 1.0 /HPF (0-13.0) 10/28/17 00:49 Urine Mucus Few /HPF 10/28/17 00:49 Blood Type A POSITIVE 10/27/17 12:21 Antibody Screen Negative 10/27/17 12:21
[2017-11-04] MEDS: HEPARIN SUB-Q SCH ×2 (06:08→14:34)
[2017-11-04] MEDS: NITRO-BID 2% TP SCH ×4 (06:08→17:00)
[2017-11-04] MEDS: LASIX IV SCH ×2 (06:08→18:50)
[2017-11-04 07:15] LABS: Anion Gap 15 mmol/L; BUN/Creatinine Ratio 14; Blood Urea Nitrogen 15 mg/dL (9-20); Calcium 8.5 mg/dL (8.4-10.2); Carbon Dioxide 32 mmol/L (22-30); Chloride 95.7 mmol/L (98-107); Glucose 93 mg/dL (75-100); Potassium 4.5 mmol/L (3.6-5.0); Sodium 138 mmol/L (137-145)
[2017-11-04] MEDS: BABY ASPIRIN PO SCH (10:55)
--- NOTE | 2017-11-04 12:55 | Discharge Summary ---
Providers - Providers Date of Admission: 10/27/17 22:28 Date of discharge: 11/04/17 Attending physician: RADHA MCQUEEN MD 10/27/17 21:54 Consult to Physician [CONS] Routine Consulting Provider: HIREN BAH Reason For Exam: chf Place consult to:: yes Notified:: y Was contact made?: Yes 11/01/17 10:40 Consult to Wound/ET Nurse [CONS] Routine Reason For Exam: wound eval 11/04/17 10:56 Physical Therapy Evaluation and Treat [CONS] Routine Comment: Reason For Exam: lower ext weakness Mode of Transport?: Walker Weight bearing status?: Full wt bearing Assistive devices?: No: none Primary care physician: PROTECTION MGR Hospitalization Reason for admission: Acute on chronic combined CHF Condition: Poor Pertinent studies: Chest x-ray; suggestive of CHF. Echo - Left ventricular chamber size is severely dilated with ejection fraction of 510%. Abnormal left ventricular diastolic function is observed. The left atrium is moderately dilated. Right ventricular global systolic function is moderately reduced. severe MR. Exercise stress test - Negative for ischemia Hospital course: 77-year-old pleasant [place]izen [place] gentleman with history of long-standing hypertension, degenerative joint disease, was admitted with progressive shortness of breath for 1 month duration. Patient also complains moderate to severe substernal pressure like chest pain, on and off, worsened on exertion, radiating to both sides of the neck. Patient has associated bilateral leg swelling for the past 1 month. Patient denied nausea, vomiting, palpitation. Patient didn't see any physician for long time. Patient denied any history of CAD, diabetes, hyperlipidemia. Patient was admitted to the floor for the management of acute combined systolic and diastolic biventricular heart failure and started management with IV Lasix, dobutamine, BP meds and appropriate CHF medications. Cardiology consult appreciated. Patient was on LifeVest. Patient showed very little apparent clinical improvement. Cardiology arranged transfer to tertiary care facility, and patient transferred to [facility] failure service accepted by Dr. Jacob. Patient had complete LBBB, thrombocytopenia, nonsustained V. tach , persistent hypotension since admission, CKD. Patient was stable for transfer. Patient was evaluated by vascular surgery for his chronic ulcer and recommended no intervention at this time. [id number] Time spent for discharge: 31 minutes - Discharge Diagnoses (1) Acute on chronic diastolic CHF (congestive heart failure), NYHA class 4 Status: Acute (2) Bilateral lower extremity edema Status: Acute (3) Chest pain Status: Acute (4) Shortness of breath Status: Acute Core Measure Documentation - Palliative Care Palliative Care/ Comfort Measures: Not Applicable - Core Measures Any of the following diagnoses?: heart failure - Heart Failure Discharge Requirements ZANDER/ARB for LVSD if EF <40%: No Reason for no ZANDER/ARB: Hypotension Beta harriet at discharge: No Reason for no beta harriet on DC: Hypotension Exam - Physical Exam Narrative exam: Not in cardiopulmonary distress. The patient appeared well nourished and normally developed. Vital signs as documented. Head exam is unremarkable. No scleral icterus . Neck is without jugular venous distension, thyromegaly, or carotid bruits. Lungs are clear to auscultation. Cardiac exam reveals regular rate and Rhythm. First and second heart sounds normal. No murmurs, rubs or gallops. Abdominal exam reveals normal bowel sounds, no masses, no organomegaly and no aortic enlargement. Extremities bilateral lower extremity edema, chronic ulcer on the RLE. PUBLIC HEALTH DOCTOR: Alert and oriented 3. No focal weakness. - Constitutional Vitals: Temp Pulse Resp BP Pulse Ox 98.6 F 101 H 20 82/60 100 11/04/17 12:23 11/04/17 12:23 11/04/17 12:23 11/04/17 12:23 11/04/17 12:23 Plan Activity: no restrictions Weight Bearing Status: Full Weight Bearing Diet: low cholesterol, low salt Follow up with: [facility] [Provider Group] - 7 Days HIREN BAH MD [Staff Physician] - 7 Days PRIMARY CAREMD [Primary Care Provider] - 3-5 Days
--- NOTE | 2017-11-04 13:13 | Progress Note ---
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 CKD H/o HTN - with persistent hypotension since admission DJD Mild hyperkalemia - improved Thrombocytopenia Possible CKD Complete LBBB NSVT Plan: Cont dobutamine gtt @ 5mcg/kg/min. Cont IV lasix. LifeVest in place. Pt with very little apparent clinical improvement. Transfer to tertiary care facility for further eval/management recommended. D/w Dr. Jacob with [facility] heart failure service who has agreed to accept the patient at [facility]. Transfer to be arranged per [facility] transfer service. D/w Dr. Baker. The patient has been seen in conjunction with Dr. Shane Hill who agrees with the assessment and plan of care. Subjective Date of service: 11/04/17 Principal diagnosis: chest pain Interval history: pt resting comfortably, denies cp or SOB. BLE edema persists. LifeVest in place. Dobutamine gtt infusing. BPs remain low. Objective Last Vital Signs Temp 98.6 F 11/04/17 12:23 Pulse 101 H 11/04/17 12:23 Resp 20 11/04/17 12:23 BP 82/60 11/04/17 12:23 Pulse Ox 100 11/04/17 12:23 - Physical Examination General: No Apparent Distress HEENT: Positive: PERRL, Normocephaly, Sinus Tenderness Neck: Positive: neck supple, trachea midline, JVD/HJR (markedly elevated.) Cardiac: Positive: Reg Rate and Rhythm, S1/S2 Lungs: Positive: Decreased Breath Sounds Neuro: Positive: Grossly Intact Abdomen: Positive: Soft. Negative: Tender Skin: Positive: Clear. Negative: Rash, Wound Extremities: Present: +2 Edema (BLE) - Labs and Meds Comprehensive Metabolic Panel 11/04/17 Range/Units 06:26 Sodium 138 (137-145) mmol/L Potassium 4.5 (3.6-5.0) mmol/L Chloride 95.7 L (98-107) mmol/L Carbon Dioxide 32 H (22-30) mmol/L BUN 15 (9-20) mg/dL Creatinine 1.1 (0.8-1.5) mg/dL Glucose 93 (75-100) mg/dL Calcium 8.5 (8.4-10.2) mg/dL - Telemetry EKG Rhythm: Sinus Rhythm
--- NOTE | 2017-11-04 14:04 | Vascular Lab Report ---
LOWER EXTREMITY VENOUS DUPLEX: REASON FOR EXAM: Pain and swelling of bilateral lower extremities. COMMENTS ON THE RIGHT: All veins visualized are freely compressible without evidence of internal echogenicity. Flow is spontaneous and phasic throughout. COMMENTS ON THE LEFT: All veins visualized are freely compressible without evidence of internal echogenicity. Flow is spontaneous and phasic throughout. IMPRESSION: No evidence of acute or chronic deep venous thrombosis in either lower extremity.
[2017-11-04 16:39] VITALS: BP 89/59
[2017-11-04] MEDS: DOBUTREX DRIP 500MG/D5W 250ML 500 MG/250 ML BAG IV SCH (18:35)
== END 2017-11-04 19:00 | disposition short-term general hospital (02) | DRG 291 ==
LOC: ED 11:34 → 4A 22:28
PROVIDERS: ADMIT Internal Medicine; ATTEND Internal Medicine
PROC: 3E0234Z Introduction of Serum, Toxoid and Vaccine into Muscle, Percutaneous Approach (ICD-10-PCS; principal; 2017-10-28)
DX: I11.0 Hypertensive heart disease with heart failure (principal); N17.0 Acute kidney failure with tubular necrosis; I47.1 Supraventricular tachycardia; I50.43 Acute on chronic combined systolic (congestive) and diastolic (congestive) heart failure; I42.9 Cardiomyopathy, unspecified; E87.5 Hyperkalemia; R60.0 Localized edema; M19.90 Unspecified osteoarthritis, unspecified site; I44.7 Left bundle-branch block, unspecified; F17.200 Nicotine dependence, unspecified, uncomplicated; S81.809A Unspecified open wound, unspecified lower leg, initial encounter; X58.XXXA Exposure to other specified factors, initial encounter; Z72.89 Other problems related to lifestyle; Y93.89 Activity, other specified; Y92.89 Other specified places as the place of occurrence of the external cause; Z82.49 Family history of ischemic heart disease and other diseases of the circulatory system; Y99.8 Other external cause status; Z23 Encounter for immunization; I25.10 Atherosclerotic heart disease of native coronary artery without angina pectoris; I95.2 Hypotension due to drugs; T44.5X5A Adverse effect of predominantly beta-adrenoreceptor agonists, initial encounter
CPT/HCPCS: 36415; 71020; 78452; 80048; 80061; 80074; 81001; 82550; 82553; 82962; 83735; 83880; 84484; 85014; 85018; 85025; 85027; 85049; 85520; 85610; 85730; 86850; 86900; 86901; 90471; 90686; 90732; 93005; 93010; 93017; 93306; 93970; 94760; 96374; 96375; 99285; A9502; G0008; G0009; J1250; J1644; J1940; J2270; J2785

== ENCOUNTER 2018-02-14 10:25 | Outpatient (CLI) | payer MEDICARE ==
--- NOTE | 2018-02-19 17:22 | Vascular Lab Report ---
LOWER EXTREMITY VENOUS DUPLEX: REASON FOR EXAM: Swelling for 3 months. COMMENTS ON THE RIGHT: All veins visualized are freely compressible without evidence of internal echogenicity. Flow is spontaneous and phasic throughout. COMMENTS ON THE LEFT: All veins visualized are freely compressible without evidence of internal echogenicity. Flow is spontaneous and phasic throughout. IMPRESSION: No evidence of acute or chronic deep venous thrombosis in either lower extremity.
== END 2018-02-14 10:26 | disposition home or self-care (01) ==
LOC: VAS 10:25
PROVIDERS: ATTEND Internal Medicine
DX: R60.0 Localized edema (principal); I11.0 Hypertensive heart disease with heart failure; I50.9 Heart failure, unspecified; Z87.891 Personal history of nicotine dependence
CPT/HCPCS: 93970